=== PATIENT | male | born 1950 | race Caucasian/White ===

== ENCOUNTER 2019-08-18 20:06 | Emergency (ER) | payer MEDICAID, MEDICARE ==
[~2019-08-18] VITALS: Ht 177.8 cm; Wt 68.0 kg
--- NOTE | 2019-08-18 20:46 | NUR ---
STS HAD 4 BEERS AT 1600
[2019-08-18 21:26] VITALS: BP 108/44
--- NOTE | 2019-08-18 21:28 | NUR ---
PT TALKING BIZARRELY, ORIENTED TO PLACE/TIME/EVENT/PERSON BUT SPEAKING NONSENSE. VSS. PT TO BE MOVED TO CORE.
--- NOTE | 2019-08-18 21:39 | NUR ---
REPORT TO MERARI
== END 2019-08-18 23:11 | disposition home or self-care (01) ==
LOC: ED 23:05
DX: G89.29 Other chronic pain (principal); M54.5 Low back pain; F17.200 Nicotine dependence, unspecified, uncomplicated; Z72.9 Problem related to lifestyle, unspecified
CPT/HCPCS: 99283

== ENCOUNTER 2019-08-19 09:05 | Emergency (ER) | payer MEDICARE, MEDICAID ==
[~2019-08-19] VITALS: Ht 177.8 cm; Wt 75.0 kg
[2019-08-19 09:10] VITALS: BP 135/70
[2019-08-19] MEDS ORDERED: NAPROXEN 500 MG TABLET PO ONE (11:00)
[2019-08-19] MEDS ORDERED: NAPROXEN 500 MG TABLET ONE (11:17)
== END 2019-08-19 11:29 | disposition home or self-care (01) ==
LOC: ED 10:16
DX: S39.012A Strain of muscle, fascia and tendon of lower back, initial encounter (principal); G89.29 Other chronic pain; F20.0 Paranoid schizophrenia; X58.XXXA Exposure to other specified factors, initial encounter; Y93.89 Activity, other specified; Y92.89 Other specified places as the place of occurrence of the external cause; Y99.8 Other external cause status
CPT/HCPCS: 99282; 99283

== ENCOUNTER 2019-08-20 10:08 | Emergency (ER) | payer MEDICARE, MEDICAID ==
[~2019-08-20] VITALS: Ht 172.7 cm; Wt 80.0 kg
[2019-08-20 11:00] VITALS: BP 138/72
[2019-08-20 11:19] LABS: BASOPHILS # (AUTO) 0.04 x10^3/uL (0-0.1); BASOPHILS % (AUTO) 0 % (0-1); EOSINOPHILS # (AUTO) 0.45 x10^3/uL (0-0.4); EOSINOPHILS % (AUTO) 4 % (1-7); LYMPHOCYTES # (AUTO) 1.51 x10^3/uL (1-3.4); LYMPHOCYTES % (AUTO) 14 % (22-44); MD NO; MEAN CORPUSCULAR HEMOGLOBIN 32.6 pg (27.5-34.5); MEAN CORPUSCULAR HGB CONC 32.8 g/dL (33.2-36.2); MEAN CORPUSCULAR VOLUME 99.4 fL (81-97); MEAN PLATELET VOLUME 7.5 fL (7.4-10.4); MONOCYTES # (AUTO) 0.44 x10^3/uL (0.2-0.8); MONOCYTES % (AUTO) 4 % (2-9); NEUTROPHILS # (AUTO) 8.56 x10^3/uL (1.8-6.8); NEUTROPHILS % (AUTO) 78 % (42-75); PLATELET COUNT 277 x10^3/uL (130-400); RED BLOOD COUNT 3.69 x10^6/uL (4.38-5.82); RED CELL DISTRIBUTION WIDTH 14.3 % (9.4-14.8)
[2019-08-20 11:23] LABS: MICROSCOPIC INDICATED
[2019-08-20 11:29] LABS: ALANINE AMINOTRANSFERASE 23 U/L (12-78); ALBUMIN 3.5 g/dL (3.4-5.0); ANION GAP 10 mmol/L (5-15); CALCIUM 8.7 mg/dL (8.5-10.1); CHLORIDE 108 mmol/L (98-107)
--- NOTE | 2019-08-20 11:31 | NUR ---
BIB BY ASHLEY FROM [facility] FOR REPORTED SI. ON ARRIVAL DENIES SI/HI. HOWEVER/TANGENTIAL/HYPERVERBAL (APPEARS TO BE MANIC VS IN AN ACUTE PHASE OF SCHIZOPHRENIA) REPORTS HX OF SAME DENIES ETOH.ILLICITS CHANGED IN TO GOWN (2 BAGS OF BELONGING PLACED IN LOCKED CLOSET) UDS SENT WELL SITTER TO BEDSIDE
[2019-08-20 11:33] LABS: ALKALINE PHOSPHATASE 114 U/L (45-117); BILIRUBIN,TOTAL 0.3 mg/dL (0.2-1.0); TOTAL PROTEIN 7.4 g/dL (6.4-8.2)
[2019-08-20 11:34] LABS: SALICYLATE LEVEL < 1.7 mg/dL (2.8-20.0)
[2019-08-20 11:48] LABS: AMPHETAMINE SCREEN, URINE Negative (Negative); BARBITURATE SCREEN, URINE Negative (Negative); BENZODIAZEPINE SCREEN, URINE Negative (Negative); CANNABINOID SCREEN, URINE Negative (Negative); COCAINE SCREEN, URINE Negative (Negative); METHADONE SCREEN, URINE Negative (Negative); OPIATE SCREEN, URINE Negative (Negative)
[2019-08-20 11:50] LABS: CULTURE INDICATED? YES
--- NOTE | 2019-08-20 12:06 | NUR ---
sitter within direct eyeline rooms remains secured with psychiatric precautions Lunch tray Ordered
--- NOTE | 2019-08-20 13:14 | NUR ---
psychiatry WELDER APPRENTICE COMBINATION at bedside-to place hold as patient reported "if i had a gun i would kill myself." Provided with lunch tray
--- NOTE | 2019-08-20 14:01 | NUR ---
THROUGHPUT RN: CHUCKIE NOTIFIED OF PT.
--- NOTE | 2019-08-20 14:10 | NUR ---
TASK RN: RECEIVED BEDSIDE REPORT FROM CARTER DANIELLE.
[2019-08-20] MEDS ORDERED: HALOPERIDOL 5 MG TABLET PO PRN (14:30)
[2019-08-20] MEDS ORDERED: LORazepam 1MG TABLET PO PRN (14:30)
[2019-08-20] MEDS ORDERED: LORazepam 2 MG/ML, 1ML IM PRN (14:30)
[2019-08-20] MEDS ORDERED: DIPHENHYDRAMINE 50 MG/ML, 1ML IM PRN (14:30)
[2019-08-20] MEDS ORDERED: OLANZAPINE 5 MG TABLET PO SCH (14:30)
[2019-08-20] MEDS ORDERED: HALOPERIDOL 5 MG/ML IM PRN (14:30)
[2019-08-20] MEDS ORDERED: DIPHENHYDRAMINE 50 MG CAPSULE PO PRN (14:30)
--- NOTE | 2019-08-20 14:42 | NUR ---
TASK RN: BEDSIDE REPORT TO CARTER DANIELLE.
--- NOTE | 2019-08-20 14:53 | NUR ---
THROUGHPUT RN: NO RESPNSE FROM ON LICENSE OF [facility]. PACKET [facility]XED TO [facility], [facility].
[2019-08-20] MEDS ORDERED: OLANZAPINE 5 MG TABLET ONE (15:06)
--- NOTE | 2019-08-20 15:10 | NUR ---
MEDICATED PER EMAR SITTER REMAIN WITHIN DIRECT EYELINE
--- NOTE | 2019-08-20 15:30 | NUR ---
Report to attila spencer on 3e
== END 2019-08-20 16:10 ==
LOC: ED 13:50
DX: F20.0 Paranoid schizophrenia (principal)
CPT/HCPCS: 36415; 80053; 80307; 81001; 85025; 87086; 87147; 99283; 99284

== ENCOUNTER 2019-09-11 16:31 | Emergency (ER) | payer MEDICAID, MEDICARE ==
[~2019-09-11] VITALS: Ht 172.7 cm; Wt 71.2 kg
[~2019-09-11 16:31] MED LIST: NICO-486 TD; OLAN5TAB9 PO
[2019-09-11 16:38] VITALS: BP 130/80
--- NOTE | 2019-09-11 16:39 | NUR ---
PT VIOLETTA RAMIREZ FOR SI FROM [facility]. PT ARRIVED ON LEGAL HOLD. PT DRESSED IN GOWN AND BELONGINGS REMOVED FROM THE ROOM. PT AAO X 4, NAD, ROOM AIR. SITTER IN HALLWAY IN DIRECT LINE OF SIGHT FOR CLSOE OBS PRECAUTIONS.
--- NOTE | 2019-09-11 16:43 | NUR ---
PER PT, HE STATES HE HAS 3-5 BEERS/WEEK.
--- NOTE | 2019-09-11 17:16 | NUR ---
THROUGHPUT: PER [facility]. PT ONLY HAS 2 MEDICARE DAYS LEFT.
[2019-09-11 18:10] LABS: BASOPHILS # (AUTO) 0.06 x10^3/uL (0-0.1); BASOPHILS % (AUTO) 1 % (0-1); EOSINOPHILS % (AUTO) 1 % (1-7); LYMPHOCYTES # (AUTO) 2.04 x10^3/uL (1-3.4); LYMPHOCYTES % (AUTO) 15 % (22-44); MD NO; MEAN CORPUSCULAR HEMOGLOBIN 31.4 pg (27.5-34.5); MEAN CORPUSCULAR HGB CONC 33.2 g/dL (33.2-36.2); MEAN CORPUSCULAR VOLUME 94.8 fL (81-97); MEAN PLATELET VOLUME 7.4 fL (7.4-10.4); MONOCYTES # (AUTO) 0.71 x10^3/uL (0.2-0.8); MONOCYTES % (AUTO) 5 % (2-9); NEUTROPHILS # (AUTO) 10.43 x10^3/uL (1.8-6.8); NEUTROPHILS % (AUTO) 78 % (42-75); PLATELET COUNT 274 x10^3/uL (130-400); RED BLOOD COUNT 4.07 x10^6/uL (4.38-5.82); RED CELL DISTRIBUTION WIDTH 13.6 % (9.4-14.8)
--- NOTE | 2019-09-11 18:15 | NUR ---
TOPOGRAPHY TECHNICIAN AT BEDSIDE FOR ASSESSMENT. PT AGREEABLE TO LAB DRAW.
[2019-09-11 18:18] LABS: ALBUMIN 3.4 g/dL (3.4-5.0); ANION GAP 7 mmol/L (5-15); CALCIUM 8.7 mg/dL (8.5-10.1); CHLORIDE 100 mmol/L (98-107); CREATININE 1.01 mg/dL (0.7-1.3)
[2019-09-11 18:26] LABS: SALICYLATE LEVEL < 1.7 mg/dL (2.8-20.0)
--- NOTE | 2019-09-11 19:00 | NUR ---
2 BAGS OF BELONGINGS AND WALKER LABELLED AND PLACED IN LOCKER. REPORT GIVEN TO CARTER MARTINEZ. CARE TRANSFERRED AT THIS TIME.
--- NOTE | 2019-09-11 19:02 | NUR ---
REPORT RECEIVED FROM JONELLE MACHADO.
--- NOTE | 2019-09-11 19:36 | NUR ---
Patient given discharge instructions and they have confirmed that they understand the instructions. Patient ambulatory with steady gait.
== END 2019-09-11 19:37 | disposition home or self-care (01) ==
LOC: ED 18:17
DX: F32.9 Major depressive disorder, single episode, unspecified (principal); F17.200 Nicotine dependence, unspecified, uncomplicated; F20.9 Schizophrenia, unspecified
CPT/HCPCS: 36415; 80048; 80307; 82040; 85025; 99284

== ENCOUNTER 2019-10-03 22:47 | Emergency (ER) | payer MEDICARE, MEDICAID ==
[~2019-10-03] VITALS: Ht 177.8 cm; Wt 75.0 kg
[2019-10-03 23:00] VITALS: BP 148/80
--- NOTE | 2019-10-03 23:08 | NUR ---
Pt arrives to ed with abd pain s/p taking two tylenol from a stranger and a sandwhich. Pt also is feeling suicidal and would like to shoot himself in the face if he had a gun. Pt reports he stop taking his psych medications for one year. Pt reports that he is not compliant and at this time is on the street.
[2019-10-03 23:20] LABS: BASOPHILS # (AUTO) 0.03 x10^3/uL (0-0.1); BASOPHILS % (AUTO) 0 % (0-1); EOSINOPHILS # (AUTO) 0.27 x10^3/uL (0-0.4); EOSINOPHILS % (AUTO) 2 % (1-7); LYMPHOCYTES # (AUTO) 2.24 x10^3/uL (1-3.4); LYMPHOCYTES % (AUTO) 18 % (22-44); MD NO; MEAN CORPUSCULAR HEMOGLOBIN 30.9 pg (27.5-34.5); MEAN CORPUSCULAR HGB CONC 33.1 g/dL (33.2-36.2); MEAN CORPUSCULAR VOLUME 93.6 fL (81-97); MEAN PLATELET VOLUME 7.6 fL (7.4-10.4); MONOCYTES # (AUTO) 0.74 x10^3/uL (0.2-0.8); MONOCYTES % (AUTO) 6 % (2-9); NEUTROPHILS # (AUTO) 8.96 x10^3/uL (1.8-6.8); NEUTROPHILS % (AUTO) 73 % (42-75); PLATELET COUNT 279 x10^3/uL (130-400); RED BLOOD COUNT 3.78 x10^6/uL (4.38-5.82); RED CELL DISTRIBUTION WIDTH 14.4 % (9.4-14.8)
[2019-10-03 23:23] LABS: ALANINE AMINOTRANSFERASE 22 U/L (12-78); ALBUMIN 3.2 g/dL (3.4-5.0); ANION GAP 8 mmol/L (5-15); CALCIUM 8.5 mg/dL (8.5-10.1); CHLORIDE 106 mmol/L (98-107); SALICYLATE LEVEL < 1.7 mg/dL (2.8-20.0)
[2019-10-03 23:25] LABS: ALKALINE PHOSPHATASE 89 U/L (45-117); BILIRUBIN,TOTAL 0.5 mg/dL (0.2-1.0); CREATININE 1.09 mg/dL (0.7-1.3); TOTAL PROTEIN 7.9 g/dL (6.4-8.2)
--- NOTE | 2019-10-03 23:58 | NUR ---
Pt asked for urine and requested to provide so he can be provided with appropriate care.
--- NOTE | 2019-10-04 00:37 | NUR ---
bedside report to gildardo spencer.
--- NOTE | 2019-10-04 00:59 | NUR ---
BREAK RN: PT REFUSING TO PEE. PT EDUCATED ON THE NEED FOR A URINE SAMPLE. WILL CONTINUE TO URGE PATIENT TO PROVIDE SAMPLE. HE WAS ALSO ADVISED THAT A STRAIGHT CATH WOULD NEED TO BE DONE IF HE CAN'T PROVIDE A URINE SAMPLE IN THE NEXT 30 MINUTES. PT STATES UNDERSTANDING.
--- NOTE | 2019-10-04 01:16 | NUR ---
BREAK RN: PT PROVIDED URINE SAMPLE, LABELED AND SENT TO LAB. RESTING ON GURNEY WITH EYES CLOSED, AROUSES TO VERBAL STIMULI.
--- NOTE | 2019-10-04 01:29 | NUR ---
REPORT TO PRIMARY RN, PALAK
[2019-10-04 01:36] LABS: AMPHETAMINE SCREEN, URINE Negative (Negative); BARBITURATE SCREEN, URINE Negative (Negative); BENZODIAZEPINE SCREEN, URINE Negative (Negative); CANNABINOID SCREEN, URINE Negative (Negative); COCAINE SCREEN, URINE Negative (Negative); METHADONE SCREEN, URINE Negative (Negative); OPIATE SCREEN, URINE Negative (Negative)
--- NOTE | 2019-10-04 01:48 | NUR ---
PT RESTING ON [place]SET, A&oX4, STATED HE CONTINUES TO HAVE SUICIDAL THOUGHT, WHEN THIS RN ASKED HIM REGARDING PLAN PT MUMBLED, TIGHTEN HIS FIST AND REFUSED TO ANSWER. ROOM SECURED, AWAITING TELEPSYCH CONSULT
--- NOTE | 2019-10-04 02:35 | NUR ---
PT RESTING ON GURNEY WITH EYES CLOSED, OPENS EYES EASILY TO VERBAL RESPONSE, PROVIDED PT WITH WARM BLANKET, DENIES FURTHER NEEDS AT THIS TIME
--- NOTE | 2019-10-04 03:46 | NUR ---
SOC UPDATED ON PT STATUS
--- NOTE | 2019-10-04 03:48 | NUR ---
TELEPSYCH CONSULT IN PROCESS
== END 2019-10-04 04:50 | disposition home or self-care (01) ==
LOC: ED 23:26
DX: F32.0 Major depressive disorder, single episode, mild (principal); F17.200 Nicotine dependence, unspecified, uncomplicated
CPT/HCPCS: 36415; 80053; 80307; 85025; 99284

== ENCOUNTER 2019-10-05 13:05 | Emergency (ER) | payer MEDICAID, MEDICARE ==
[~2019-10-05] VITALS: Ht 177.8 cm; Wt 73.0 kg
--- NOTE | 2019-10-05 13:13 | NUR ---
pt BIB by [facility] for C/O abd pain, low back pain and "dark red stools" pt required assistance moving from [facility] to hospital [facility]. Requested pt to change into a hospital gown. Connected to VS machine. Call light given to pt. Side rails up.
--- NOTE | 2019-10-05 13:16 | NUR ---
Provider at bedside evulating pt.
[2019-10-05 13:52] LABS: ALANINE AMINOTRANSFERASE 19 U/L (12-78); ALBUMIN 3.1 g/dL (3.4-5.0); ANION GAP 6 mmol/L (5-15); CALCIUM 8.7 mg/dL (8.5-10.1); CHLORIDE 109 mmol/L (98-107); CREATININE 0.95 mg/dL (0.7-1.3)
[2019-10-05 13:54] LABS: ALKALINE PHOSPHATASE 83 U/L (45-117); BILIRUBIN,TOTAL 0.5 mg/dL (0.2-1.0); MEAN CORPUSCULAR HEMOGLOBIN 31.3 pg (27.5-34.5); MEAN CORPUSCULAR HGB CONC 33.3 g/dL (33.2-36.2); MEAN CORPUSCULAR VOLUME 93.9 fL (81-97); MEAN PLATELET VOLUME 7.4 fL (7.4-10.4); PLATELET COUNT 241 x10^3/uL (130-400); RED BLOOD COUNT 3.67 x10^6/uL (4.38-5.82); RED CELL DISTRIBUTION WIDTH 14.2 % (9.4-14.8); TOTAL PROTEIN 7.3 g/dL (6.4-8.2)
[2019-10-05] MEDS ORDERED: SODIUM CHLORIDE FLUSH 10ML SYR IVF ONE (14:00)
[2019-10-05 14:21] LABS: BASOPHILS # (AUTO) 0.04 x10^3/uL (0-0.1); BASOPHILS % (AUTO) 0 % (0-1); EOSINOPHILS # (AUTO) 0.13 x10^3/uL (0-0.4); EOSINOPHILS % (AUTO) 2 % (1-7); LYMPHOCYTES # (AUTO) 1.91 x10^3/uL (1-3.4); LYMPHOCYTES % (AUTO) 21 % (22-44); MD SCAN; MONOCYTES # (AUTO) 0.36 x10^3/uL (0.2-0.8); MONOCYTES % (AUTO) 4 % (2-9); NEUTROPHILS # (AUTO) 6.51 x10^3/uL (1.8-6.8); NEUTROPHILS % (AUTO) 73 % (42-75)
--- NOTE | 2019-10-05 14:32 | NUR ---
pt out of room to CT
--- NOTE | 2019-10-05 14:42 | NUR ---
Returned from CT
[2019-10-05] MEDS ORDERED: OMNIPAQUE 350 MG/ML, 100ML BOTTLE ONE (14:53)
--- NOTE | 2019-10-05 15:02 | NUR ---
Requested pt to provide UA sample. pt stated he will. Urinal given to pt.
--- NOTE | 2019-10-05 15:07 | NUR ---
pt states he is unable to provide urine sample d/t "feeling like [he] is in spider webs." Asked pt for clarrification what he meant and was told "its a figure of speech." encouraged pt to provide sample to continue with POC, pt refused. Ask if pt would perfer a straight cath, pt refused. Updated MD regarding pt status
--- NOTE | 2019-10-05 15:37 | NUR ---
pt being discharged. Paperwork given to pt include perscriptions and surgical refferal. pt refusing to leave stating: he can't sleep, his voice his hoarse, the wheels on his walker do not work, he does not have money to have surgery completed or fill his medications. Ask patient how he could be assisted with his discharge/what he required. pt does not provide an answer. continues to list problems and how he needs money and will not have any until Friday. Re-discussed pts discharge paperwork and MDs recommendations. pt able to stand and walk with walker with no obvious distress. pt continues to refuse to leave despite discharge instructions. Discussed with charge nurse. Security assist pt out of hospital. pt ambulated with use of FWW without distress.
[2019-10-05 15:41] VITALS: BP 105/41
== END 2019-10-05 16:00 | disposition home or self-care (01) ==
LOC: ED 14:30
DX: K64.4 Residual hemorrhoidal skin tags (principal); K40.91 Unilateral inguinal hernia, without obstruction or gangrene, recurrent; F17.200 Nicotine dependence, unspecified, uncomplicated
CPT/HCPCS: 36415; 74177; 80053; 83690; 85025; 99284; Q9967

== ENCOUNTER 2019-10-06 13:41 | Emergency (ER) | payer MEDICAID, MEDICARE ==
[~2019-10-06] VITALS: Ht 177.8 cm; Wt 69.9 kg
[2019-10-06 13:50] VITALS: BP 113/64
--- NOTE | 2019-10-06 15:00 | NUR ---
blacksmith helper: Pt wheeled to ED room TR01 from lobby at this time.
--- NOTE | 2019-10-06 15:44 | NUR ---
DR MARTINEZ BS TO DISCUSS POC. PT SPEAKING IN ANGRY VOICE.
--- NOTE | 2019-10-06 16:26 | NUR ---
TASK RN: PT PROVIDED 2 PAIR OF NEW SOCKS AND CLEAN POLO T-SHIRT. D/C INSTRUCTINS REVIEWED AND QUESTIONS ANSWERED. PT D/C WALKING WITH HIS WALKER, TAXI VOUCHER TO [facility] STATION PROVIDED PER PTS REQUEST.
== END 2019-10-06 16:41 | disposition home or self-care (01) ==
LOC: ED 16:35
DX: K64.4 Residual hemorrhoidal skin tags (principal); F17.200 Nicotine dependence, unspecified, uncomplicated
CPT/HCPCS: 99283

== ENCOUNTER 2019-11-17 13:53 | Emergency (ER) | payer MEDICARE, MEDICAID ==
[~2019-11-17] VITALS: Ht 177.8 cm; Wt 68.0 kg
[2019-11-17 13:58] VITALS: BP 155/89
--- NOTE | 2019-11-17 14:06 | NUR ---
TASK RN: THIS IS A 68 YO M BIB EMS FROM BUS STATION W/ C/O SI AND VISUAL HALLCUINATIONS. PT STATES "I WOKE UP THIS MORNING AND EVERYTHING WAS INSIDE OUT". DENIES AUDITORY HALLUCINATIONS. HX:SCHITZOPHRENIA AND BIPOLAR. PT REPORTS BEING OFF MEDS FOR OVER A YEAR. PT REPORTS SI BUT NO PLAN IN PLACE. DENIES ANY PREVIOUS ATTEMPTS. REPORTS CURRENT RT FOOT FX W/ BOOT IN PLACE UPON ARRIVAL. PT PLACED IN GOWN, PERSONAL BELONGINGS REMOVED. VS STABLE. PT RESTING ON [employer]. LAB IN ROOM.
--- NOTE | 2019-11-17 14:17 | NUR ---
1 BAG OF PTS BELONGINGS INCLUDING CANE, LABELED AND PLACED ON BOTTOM SHELF OF BELONGINGS LOCKER.
--- NOTE | 2019-11-17 14:24 | NUR ---
REPORT GIVEN TO MADYSON MACHADO.
--- NOTE | 2019-11-17 14:38 | NUR ---
PT FOUND WEARING COMPRESSION STOCKINGS INAPPROPRIATELY. CORRECTION MADE TO BOTH STOCKINGS AND EDUCATION PROVIDED TO PT. PT SEEMS RECEPTIVE TO TEACING AT THIS TIME.
[2019-11-17 14:40] LABS: ALBUMIN 3.2 g/dL (3.4-5.0); ANION GAP 5 mmol/L (5-15); CALCIUM 8.6 mg/dL (8.5-10.1); CHLORIDE 110 mmol/L (98-107); CREATININE 0.99 mg/dL (0.7-1.3); MEAN CORPUSCULAR HGB CONC 32.9 g/dL (33.2-36.2); MEAN CORPUSCULAR VOLUME 94.3 fL (81-97); MEAN PLATELET VOLUME 7.5 fL (7.4-10.4); PLATELET COUNT 219 x10^3/uL (130-400); RED BLOOD COUNT 3.59 x10^6/uL (4.38-5.82); RED CELL DISTRIBUTION WIDTH 17.2 % (9.4-14.8)
[2019-11-17 14:43] LABS: SALICYLATE LEVEL < 1.7 mg/dL (2.8-20.0)
[2019-11-17 15:17] LABS: BASOPHILS # (AUTO) 0.05 x10^3/uL (0-0.1); BASOPHILS % (AUTO) 1 % (0-1); EOSINOPHILS # (AUTO) 0.29 x10^3/uL (0-0.4); EOSINOPHILS % (AUTO) 4 % (1-7); LYMPHOCYTES # (AUTO) 1.43 x10^3/uL (1-3.4); LYMPHOCYTES % (AUTO) 18 % (22-44); MONOCYTES # (AUTO) 0.41 x10^3/uL (0.2-0.8); MONOCYTES % (AUTO) 5 % (2-9); NEUTROPHILS # (AUTO) 5.93 x10^3/uL (1.8-6.8); NEUTROPHILS % (AUTO) 73 % (42-75)
[2019-11-17 15:18] LABS: MD SCAN
--- NOTE | 2019-11-17 16:24 | NUR ---
PT RESTING IN BED AT THIS TIME. AWAITING ASSEMBLER CORNCOB PIPES EVAL. PT EXPRESSES NO WANTS OR NEEDS AT THIS TIME.
--- NOTE | 2019-11-17 16:50 | NUR ---
Robert RN: LEN Frost at bedside assessing pt, UDS collected & walked to lab
[2019-11-17 17:10] LABS: AMPHETAMINE SCREEN, URINE Negative (Negative); BARBITURATE SCREEN, URINE Negative (Negative); BENZODIAZEPINE SCREEN, URINE Negative (Negative); CANNABINOID SCREEN, URINE Positive (Negative); COCAINE SCREEN, URINE Negative (Negative); METHADONE SCREEN, URINE Negative (Negative); OPIATE SCREEN, URINE Negative (Negative)
== END 2019-11-17 18:38 | disposition home or self-care (01) ==
LOC: ED 16:42
DX: F28 Other psychotic disorder not due to a substance or known physiological condition (principal); F20.9 Schizophrenia, unspecified
CPT/HCPCS: 36415; 80048; 80307; 82040; 85025; 99283

== ENCOUNTER 2019-11-20 19:09 | Emergency (ER) | payer MEDICARE, MEDICAID ==
[2019-11-20 19:27] VITALS: BP 121/73
--- NOTE | 2019-11-20 20:30 | NUR ---
NO ANSWER WHEN CALLED FOR ROOM
--- NOTE | 2019-11-20 21:00 | NUR ---
NO ANSWER WHEN CALLED FOR ROOM
--- NOTE | 2019-11-20 22:00 | NUR ---
NOT IN LOBBY
--- NOTE | 2019-11-21 00:50 | NUR ---
PT IS BACK IN LOBBY AT THIS TIME, ROOMED NOW.
== END 2019-11-21 02:20 | disposition left against medical advice (07) ==
LOC: ED 11-21 01:09
DX: S39.012A Strain of muscle, fascia and tendon of lower back, initial encounter (principal); F17.200 Nicotine dependence, unspecified, uncomplicated; Z72.9 Problem related to lifestyle, unspecified; X58.XXXA Exposure to other specified factors, initial encounter; Y93.89 Activity, other specified; Y92.89 Other specified places as the place of occurrence of the external cause; Y99.8 Other external cause status
CPT/HCPCS: 99283

== ENCOUNTER 2019-11-21 04:10 | Emergency (ER) | payer MEDICARE, MEDICAID ==
[~2019-11-21] VITALS: Ht 177.8 cm; Wt 68.1 kg
[2019-11-21 06:44] VITALS: BP 127/67
== END 2019-11-21 08:01 | disposition home or self-care (01) ==
LOC: ED 07:10
DX: J00 Acute nasopharyngitis [common cold] (principal); F17.200 Nicotine dependence, unspecified, uncomplicated; Z72.9 Problem related to lifestyle, unspecified
CPT/HCPCS: 99283

== ENCOUNTER 2019-11-22 17:55 | Emergency (ER) | payer MEDICARE, MEDICAID ==
[~2019-11-22] VITALS: Ht 177.8 cm; Wt 68.0 kg
[2019-11-22 20:25] VITALS: BP 125/92
--- NOTE | 2019-11-22 21:06 | NUR ---
Patient uncooperative with assessment. Patient refusing to answer questions. Patient refusing to move from wheelchair to gurney. Refusing to provide urine sample. Urinal left with patient. Will continue monitor.
--- NOTE | 2019-11-22 21:34 | NUR ---
Patient refusing DC instructions. Patient taken to DC desk via personal wheelchair.
== END 2019-11-22 21:37 | disposition home or self-care (01) ==
LOC: ED 18:55
DX: S39.012A Strain of muscle, fascia and tendon of lower back, initial encounter (principal); F17.200 Nicotine dependence, unspecified, uncomplicated; Z72.9 Problem related to lifestyle, unspecified; X58.XXXA Exposure to other specified factors, initial encounter; Y93.89 Activity, other specified; Y92.89 Other specified places as the place of occurrence of the external cause; Y99.8 Other external cause status
CPT/HCPCS: 99281

== ENCOUNTER 2019-11-24 20:19 | Emergency (ER) | payer MEDICARE, MEDICAID ==
[~2019-11-24] VITALS: Ht 177.8 cm; Wt 68.5 kg
--- NOTE | 2019-11-24 21:05 | NUR ---
AQUATIC PHYSIOTHERAPIST AT BEDSIDE FOR XRAY.
--- NOTE | 2019-11-24 22:25 | NUR ---
PT SLEEPING INTERMITTENTLY, SIDE RAILS UP AND LOCKED, CALL LIGHT PLACED WITHIN REACH. VSS.
[2019-11-24 23:16] VITALS: BP 133/71
--- NOTE | 2019-11-24 23:16 | NUR ---
RESTING ON GURNEY, NAD, RESPIRATIONS EVEN AND UNLABORED. SAFETY PRECAUTIONS IN PLACE.
--- NOTE | 2019-11-24 23:28 | NUR ---
ATTEMPTED TO BREATHALYZE, PT UNABLE TO STAY AWAKE LONG ENOUGH TO TRY AND BLOW. UPDATED SCIENTIFIC PROCESS OPERATOR.
--- NOTE | 2019-11-24 23:58 | NUR ---
PT ESCORTED OUT IN HIS WHEEL CHAIR. A0X4. PT ABLE TO OPERATE HIS WHEEL CHAIR SAFELY AND STEADILY. PT PROVIDED BUS PASS
== END 2019-11-25 | disposition home or self-care (01) ==
LOC: ED 23:04
DX: F10.120 Alcohol abuse with intoxication, uncomplicated (principal); R05 Cough; R06.02 Shortness of breath; F20.9 Schizophrenia, unspecified; F17.200 Nicotine dependence, unspecified, uncomplicated; Y90.9 Presence of alcohol in blood, level not specified
CPT/HCPCS: 71045; 99283

== ENCOUNTER 2019-11-25 02:02 | Emergency (ER) | payer MEDICARE, MEDICAID ==
[~2019-11-25] VITALS: Ht 182.9 cm; Wt 77.0 kg
[2019-11-25 02:03] VITALS: BP 141/87
== END 2019-11-25 02:21 | disposition home or self-care (01) ==
LOC: ED 02:10
DX: J00 Acute nasopharyngitis [common cold] (principal); T73.0XXA Starvation, initial encounter; F17.210 Nicotine dependence, cigarettes, uncomplicated; Z72.9 Problem related to lifestyle, unspecified; X58.XXXA Exposure to other specified factors, initial encounter
CPT/HCPCS: 99283; 99406

== ENCOUNTER 2019-11-25 04:08 | Emergency (ER) | payer MEDICARE, MEDICAID | END 2019-11-25 05:06 | LOC: ED 04:12 | DX: R93.0 Abnormal findings on diagnostic imaging of skull and head, not elsewhere classified (principal); Z53.21 Procedure and treatment not carried out due to patient leaving prior to being seen by health care provider ==

== ENCOUNTER 2019-11-26 14:11 | Emergency (ER) | payer MEDICARE, MEDICAID ==
[~2019-11-26] VITALS: Ht 175.3 cm; Wt 70.0 kg
[2019-11-26 14:23] VITALS: BP 148/79
== END 2019-11-26 14:59 | disposition home or self-care (01) ==
LOC: ED 14:40
DX: R42 Dizziness and giddiness (principal); F20.9 Schizophrenia, unspecified
CPT/HCPCS: 93005; 99283

== ENCOUNTER 2019-11-27 11:42 | Emergency (ER) | payer MEDICARE, MEDICAID ==
[~2019-11-27] VITALS: Ht 177.8 cm; Wt 69.0 kg
--- NOTE | 2019-11-27 12:11 | NUR ---
PT CAME IN CO OF BILAT FLANK PAIN AND COUGH. WAS TREATED YESTERDAY FOR NAUSEA AFTER SMOKING MARIJUANA. UA SENT. BLOOD DRAWN. EKG.
[2019-11-27 12:24] LABS: MICROSCOPIC INDICATED
[2019-11-27 12:30] LABS: BASOPHILS # (AUTO) 0.01 x10^3/uL (0-0.1); BASOPHILS % (AUTO) 0 % (0-1); EOSINOPHILS # (AUTO) 0.07 x10^3/uL (0-0.4); EOSINOPHILS % (AUTO) 1 % (1-7); LYMPHOCYTES % (AUTO) 15 % (22-44); MD NO; MEAN CORPUSCULAR HEMOGLOBIN 30.6 pg (27.5-34.5); MEAN CORPUSCULAR HGB CONC 32.1 g/dL (33.2-36.2); MEAN CORPUSCULAR VOLUME 95.4 fL (81-97); MEAN PLATELET VOLUME 7.5 fL (7.4-10.4); MONOCYTES # (AUTO) 0.35 x10^3/uL (0.2-0.8); MONOCYTES % (AUTO) 5 % (2-9); NEUTROPHILS # (AUTO) 5.71 x10^3/uL (1.8-6.8); NEUTROPHILS % (AUTO) 79 % (42-75); PLATELET COUNT 247 x10^3/uL (130-400); RED BLOOD COUNT 3.86 x10^6/uL (4.38-5.82); RED CELL DISTRIBUTION WIDTH 18.3 % (9.4-14.8)
[2019-11-27 12:42] LABS: ALBUMIN 3.3 g/dL (3.4-5.0); ANION GAP 9 mmol/L (5-15); CALCIUM 8.1 mg/dL (8.5-10.1); CHLORIDE 110 mmol/L (98-107); CREATININE 1.07 mg/dL (0.7-1.3)
[2019-11-27 12:54] LABS: CULTURE INDICATED? NO
[2019-11-27 13:10] VITALS: BP 147/86
--- NOTE | 2019-11-27 13:11 | NUR ---
PT RESTING IN [facility]. NAD. VSS. NO NEEDS AT THIS TIME. BLANKET PROVIDED
== END 2019-11-27 14:16 | disposition home or self-care (01) ==
LOC: ED 12:20
DX: R10.9 Unspecified abdominal pain (principal); R30.9 Painful micturition, unspecified; R05 Cough; G89.29 Other chronic pain; F20.9 Schizophrenia, unspecified
CPT/HCPCS: 36415; 71045; 80048; 81001; 82040; 85025; 99284

== ENCOUNTER 2019-11-27 18:31 | Emergency (ER) | payer MEDICARE, MEDICAID ==
[~2019-11-27] VITALS: Ht 177.8 cm; Wt 72.0 kg
[2019-11-27 18:36] VITALS: BP 142/84
--- NOTE | 2019-11-27 18:48 | NUR ---
PT GIVEN DISCHARGE INSTRUCTIONS PER ER PROVIDER. SECURITY CALLED TO ASSIST PT TO LEAVE PREMISES D/T PT CUSSING AT STAFF AND REFUSING TO LEAVE
== END 2019-11-27 18:49 | disposition home or self-care (01) ==
LOC: ED 18:40
DX: J15.9 Unspecified bacterial pneumonia (principal); F17.200 Nicotine dependence, unspecified, uncomplicated; Z72.9 Problem related to lifestyle, unspecified
CPT/HCPCS: 96360; 96361; 96372; 99283

== ENCOUNTER 2019-12-02 12:07 | Emergency (ER) | payer MEDICARE, MEDICAID ==
[~2019-12-02] VITALS: Ht 177.8 cm; Wt 59.1 kg
[2019-12-02] MEDS ORDERED: KETOROLAC 30 MG/1 ML IM ONE (12:30)
[2019-12-02] MEDS ORDERED: HYDROcodone/APAP 5/325 TABLET PO ONE (12:30)
[2019-12-02] MEDS ORDERED: PLEASE ENTER HEIGHT AND WEIGHT MC SCH (12:30)
[2019-12-02] MEDS ORDERED: KETOROLAC 30 MG/1 ML ONE (12:34)
[2019-12-02] MEDS ORDERED: HYDROcodone/APAP 5/325 TABLET ONE (12:34)
[2019-12-02 12:39] VITALS: BP 138/83
--- NOTE | 2019-12-02 12:39 | NUR ---
PT MEDICATED PER EMAR. PT TOLERATED WELL. PT'S AOX4. RESPS EVEN AND UNLABORED.
--- NOTE | 2019-12-02 12:59 | NUR ---
pt's pain level is atill 10/10 now after pain meds given. edmd notified.
[2019-12-03] MEDS ORDERED: ALBUTEROL SULFATE 200 PUFFS/8.5 GR INH INH PRN (08:00)
== END 2019-12-02 14:50 | disposition home or self-care (01) ==
LOC: ED 12:26
DX: J44.1 Chronic obstructive pulmonary disease with (acute) exacerbation (principal); G89.29 Other chronic pain; M54.5 Low back pain; R05 Cough; I25.2 Old myocardial infarction; F17.210 Nicotine dependence, cigarettes, uncomplicated
CPT/HCPCS: 96372; 99283; 99406; J1885

== ENCOUNTER 2019-12-03 06:38 | Emergency (ER) | payer MEDICARE, MEDICAID ==
[~2019-12-03] VITALS: Ht 177.8 cm; Wt 70.0 kg
[2019-12-03 06:44] VITALS: BP 146/91
--- NOTE | 2019-12-03 06:48 | NUR ---
Patient VIOLETTA diana from the alf c/o cough x2 weeks. Patient was seen here yesterday for same and given an RX for antibiotics. Patient did not get it filled. Patient states he did not fill it because "I have only been here five months and I don't know where the pharmacy is." Patient is in NAD. Respirations even and unlabored.
--- NOTE | 2019-12-03 07:06 | NUR ---
REPORT FROM CARTER HDZ. PT CARE RESPONSIBILITIES ASSUMED.
[2019-12-03] MEDS ORDERED: ALBUTEROL HFA 90 MCG/SPRAY INH PRN (08:00)
--- NOTE | 2019-12-03 08:03 | NUR ---
RN STANFORD IS ASSISTING THE PRIMARY RN WITH PT. CARE. PT.'S SATS 90% WHEN THE RN ENTERED THE ROOM. PT. WAS ON 02 AT 2 LITERS. REPORT TO THE PRIMARY CARE RN.
[2019-12-03 08:45] LABS: RAPID INFLUENZA A Negative (Negative); RAPID INFLUENZA B Negative (Negative)
== END 2019-12-03 09:37 | disposition home or self-care (01) ==
LOC: ED 06:50
DX: J44.1 Chronic obstructive pulmonary disease with (acute) exacerbation (principal); Z20.828 Contact with and (suspected) exposure to other viral communicable diseases; J18.1 Lobar pneumonia, unspecified organism; G89.29 Other chronic pain; F20.9 Schizophrenia, unspecified; I25.2 Old myocardial infarction; F17.210 Nicotine dependence, cigarettes, uncomplicated
CPT/HCPCS: 71045; 87400; 93005; 99285; J7512

== ENCOUNTER 2019-12-04 01:58 | Emergency (ER) | payer MEDICARE, MEDICAID ==
[~2019-12-04] VITALS: Ht 177.8 cm; Wt 60.0 kg
[2019-12-04 02:01] VITALS: BP 161/94
--- NOTE | 2019-12-04 02:05 | NUR ---
Patient BIB [facility] c/o cough x2 weeks. Seen yesterday; lost RX. Patient states he wants a new RX. Patient is in NAD. Respirations even and unlabored.
== END 2019-12-04 02:32 | disposition home or self-care (01) ==
LOC: ED 02:06
DX: J44.9 Chronic obstructive pulmonary disease, unspecified (principal); I25.2 Old myocardial infarction; F17.290 Nicotine dependence, other tobacco product, uncomplicated
CPT/HCPCS: 99283; 99406

== ENCOUNTER 2019-12-06 11:12 | Emergency (ER) | payer MEDICARE, MEDICAID ==
[~2019-12-06] VITALS: Ht 177.8 cm; Wt 60.0 kg
--- NOTE | 2019-12-06 11:37 | NUR ---
pt biba for c/o fatigue and productive cough for last several weeks, pt was seen here multiple times in last week for same complaint, most recently 2 days ago, given rx for brochitis, pt took one dose abx and states symptoms worsened. report received from EMS. pt a&o, resps even and unlabored. nsr on surveillance system monitor. pt able to speak in full sentences without difficulty. all monitors in place. call light in reach. awaiting provider and dispo.
[2019-12-06] MEDS ORDERED: CEFTRIAXONE 1,000 MG IM ONE (12:30)
[2019-12-06] MEDS ORDERED: CEFTRIAXONE 1,000 MG ONE (13:03)
--- NOTE | 2019-12-06 13:15 | NUR ---
pt medicated per emar, tolerated well. awaiting dc orders from .
[2019-12-06 14:00] VITALS: BP 118/74
--- NOTE | 2019-12-06 14:05 | NUR ---
pt given dc instructions/education by CARTER Ley, ambulatory to dc with steady gait.
== END 2019-12-06 14:06 | disposition home or self-care (01) ==
LOC: ED 11:35
DX: J18.9 Pneumonia, unspecified organism (principal); J44.9 Chronic obstructive pulmonary disease, unspecified; F20.9 Schizophrenia, unspecified; I25.2 Old myocardial infarction
CPT/HCPCS: 71045; 93005; 96372; 99283; J0696

== ENCOUNTER 2019-12-08 17:50 | Emergency (ER) | payer MEDICARE, MEDICAID ==
[~2019-12-08] VITALS: Ht 177.8 cm; Wt 60.0 kg
--- NOTE | 2019-12-08 17:58 | NUR ---
THIS IS A 68 YO M BIB EMS W/ C/O FACE BURNING AFTER STARTING NEW ABX. PT STATES HE STARTED DOXYCYCLINE 2 DAYS AGO. RESP EVEN AND UNLABORED. VS STABLE. NADN. PT CONVERSING W/O DIFFICULTY. PT IS RESTING ON GURNEY CONNECTED TO ALL MONITORING. RED CASTELLON AT BEDSIDE FOR EVAL. DENIES FURTHER NEEDS AT THIS TIME.
[2019-12-08] MEDS ORDERED: DIPHENHYDRAMINE 25 MG CAPSULE PO ONE (18:00)
[2019-12-08] MEDS ORDERED: FAMOTIDINE 20 MG TABLET PO ONE (18:00)
[2019-12-08] MEDS ORDERED: DIPHENHYDRAMINE 25 MG CAPSULE ONE (18:01)
[2019-12-08] MEDS ORDERED: FAMOTIDINE 20 MG TABLET ONE (18:03)
[2019-12-08 18:48] VITALS: BP 139/74
== END 2019-12-08 18:50 | disposition home or self-care (01) ==
LOC: ED 18:23
DX: J42 Unspecified chronic bronchitis (principal); T36.4X5A Adverse effect of tetracyclines, initial encounter; L56.8 Other specified acute skin changes due to ultraviolet radiation; G89.29 Other chronic pain; I25.2 Old myocardial infarction; F17.200 Nicotine dependence, unspecified, uncomplicated; Y92.89 Other specified places as the place of occurrence of the external cause
CPT/HCPCS: 99283; Q0163

== ENCOUNTER 2019-12-11 17:22 | Emergency (ER) | payer MEDICARE, MEDICAID ==
[~2019-12-11] VITALS: Ht 177.8 cm; Wt 69.9 kg
--- NOTE | 2019-12-11 17:40 | NUR ---
Late Entry: Pt changed into gown, resting on gurney, NAD, denies additional needs, call light within reach, WCTM.
[2019-12-11] MEDS ORDERED: SODIUM CHLORIDE 0.9% 1,000ML IVBOLUS ONE (18:30)
[2019-12-11] MEDS ORDERED: PROMETHAZINE 25 MG/ML, 1ML IM ONE (18:30)
[2019-12-11] MEDS ORDERED: FAMOTIDINE 20 MG/2 ML IV ONE (18:30)
[2019-12-11] MEDS ORDERED: ONDANSETRON 2MG/ML, 2ML IVPush ONE (18:30)
[2019-12-11] MEDS ORDERED: SODIUM CHLORIDE FLUSH 10ML SYR IVF ONE (18:30)
[2019-12-11] MEDS ORDERED: ONDANSETRON 2MG/ML, 2ML ONE (18:36)
[2019-12-11] MEDS ORDERED: FAMOTIDINE 20 MG/2 ML ONE (18:36)
[2019-12-11 18:38] LABS: BASOPHILS # (AUTO) 0.02 x10^3/uL (0-0.1); BASOPHILS % (AUTO) 0 % (0-1); EOSINOPHILS # (AUTO) 0.04 x10^3/uL (0-0.4); EOSINOPHILS % (AUTO) 0 % (1-7); LYMPHOCYTES # (AUTO) 2.13 x10^3/uL (1-3.4); LYMPHOCYTES % (AUTO) 20 % (22-44); MD NO; MEAN CORPUSCULAR HEMOGLOBIN 30.7 pg (27.5-34.5); MEAN CORPUSCULAR HGB CONC 32.6 g/dL (33.2-36.2); MEAN CORPUSCULAR VOLUME 94.1 fL (81-97); MEAN PLATELET VOLUME 7.5 fL (7.4-10.4); MONOCYTES # (AUTO) 0.86 x10^3/uL (0.2-0.8); MONOCYTES % (AUTO) 8 % (2-9); NEUTROPHILS # (AUTO) 7.66 x10^3/uL (1.8-6.8); NEUTROPHILS % (AUTO) 72 % (42-75); PLATELET COUNT 303 x10^3/uL (130-400); RED CELL DISTRIBUTION WIDTH 17.3 % (9.4-14.8)
[2019-12-11 18:47] VITALS: BP 130/74
[2019-12-11 18:48] LABS: ALBUMIN 3.1 g/dL (3.4-5.0); ANION GAP 8 mmol/L (5-15); CALCIUM 8.8 mg/dL (8.5-10.1); CHLORIDE 105 mmol/L (98-107)
--- NOTE | 2019-12-11 18:50 | NUR ---
PT RSTING IN ROOM. VSS. PT RPORTS MILD NAUSA AND DCLINS PHNRGAN AT THIS TYRONE. PT MDICATD WITH SOLO FOR NAUSA. PT RMAINS DROWSY. NO NDS XPRSSD AT THIS TYRONE. CALL LIGHT WITHIN SALOMÓN. AWAITING RSULTS.
[2019-12-11 18:52] LABS: ALANINE AMINOTRANSFERASE 48 U/L (12-78); ALKALINE PHOSPHATASE 111 U/L (45-117); BILIRUBIN,TOTAL 0.4 mg/dL (0.2-1.0); CREATININE 1.24 mg/dL (0.7-1.3); TOTAL PROTEIN 6.4 g/dL (6.4-8.2)
--- NOTE | 2019-12-11 19:01 | NUR ---
Bedside report to Dani MACHADO, pt care transferred at this time.
== END 2019-12-11 19:57 | disposition home or self-care (01) ==
LOC: ED 17:30
DX: R11.2 Nausea with vomiting, unspecified (principal); K59.00 Constipation, unspecified; R94.31 Abnormal electrocardiogram [ECG] [EKG]; F20.9 Schizophrenia, unspecified; I25.2 Old myocardial infarction; G89.29 Other chronic pain; J44.9 Chronic obstructive pulmonary disease, unspecified; F17.200 Nicotine dependence, unspecified, uncomplicated
CPT/HCPCS: 36415; 74021; 80053; 83690; 85025; 93005; 96361; 96374; 96375; 99285; J2405; J3490; J7030

== ENCOUNTER 2019-12-16 16:11 | Emergency (ER) | payer MEDICARE, MEDICAID ==
[~2019-12-16] VITALS: Ht 177.8 cm; Wt 63.0 kg
[2019-12-16] MEDS ORDERED: SODIUM CHLORIDE FLUSH 10ML SYR IVF ONE (16:30)
[2019-12-16] MEDS ORDERED: PLEASE ENTER HEIGHT AND WEIGHT MC SCH (17:00)
[2019-12-16 17:12] LABS: BASOPHILS # (AUTO) 0.04 x10^3/uL (0-0.1); BASOPHILS % (AUTO) 0 % (0-1); EOSINOPHILS # (AUTO) 0.14 x10^3/uL (0-0.4); EOSINOPHILS % (AUTO) 1 % (1-7); LYMPHOCYTES # (AUTO) 1.65 x10^3/uL (1-3.4); LYMPHOCYTES % (AUTO) 15 % (22-44); MD NO; MEAN CORPUSCULAR HGB CONC 32.9 g/dL (33.2-36.2); MEAN CORPUSCULAR VOLUME 94.4 fL (81-97); MEAN PLATELET VOLUME 7.6 fL (7.4-10.4); MONOCYTES # (AUTO) 0.75 x10^3/uL (0.2-0.8); MONOCYTES % (AUTO) 7 % (2-9); NEUTROPHILS # (AUTO) 8.83 x10^3/uL (1.8-6.8); NEUTROPHILS % (AUTO) 77 % (42-75); PLATELET COUNT 245 x10^3/uL (130-400); RED BLOOD COUNT 4.03 x10^6/uL (4.38-5.82); RED CELL DISTRIBUTION WIDTH 17.7 % (9.4-14.8)
[2019-12-16 17:22] LABS: ALANINE AMINOTRANSFERASE 52 U/L (12-78); ANION GAP 4 mmol/L (5-15); CALCIUM 8.6 mg/dL (8.5-10.1); CHLORIDE 104 mmol/L (98-107); CREATININE 0.88 mg/dL (0.7-1.3)
--- NOTE | 2019-12-16 17:25 | NUR ---
PT RESTING IN [facility]. CONTINUES TO HAVE SOME INCREASED WOB THOUGH IMPROVED FROM ARRIVAL. WILL CONTINUE TO MONITOR.
[2019-12-16 17:26] LABS: ALKALINE PHOSPHATASE 119 U/L (45-117); BILIRUBIN,TOTAL 0.5 mg/dL (0.2-1.0); TOTAL PROTEIN 6.5 g/dL (6.4-8.2); TROPONIN I 0.031 ng/mL (0.000-0.045)
[2019-12-16 18:00] VITALS: BP 129/96
--- NOTE | 2019-12-16 18:21 | NUR ---
PATIENT TAKEN TO D/C VIA W/C. TO BE TAKEN HOME VIA CAB. GIVEN D/C PAPERWORK.
== END 2019-12-16 18:24 | disposition home or self-care (01) ==
LOC: ED 16:35
DX: J44.1 Chronic obstructive pulmonary disease with (acute) exacerbation (principal); Z20.828 Contact with and (suspected) exposure to other viral communicable diseases; I25.2 Old myocardial infarction; G89.29 Other chronic pain; F17.200 Nicotine dependence, unspecified, uncomplicated; R07.9 Chest pain, unspecified; R00.0 Tachycardia, unspecified; R94.31 Abnormal electrocardiogram [ECG] [EKG]
CPT/HCPCS: 36415; 71045; 80053; 80307; 83605; 83880; 84145; 84484; 85025; 87040; 93005

== ENCOUNTER 2019-12-19 12:35 | Emergency (ER) | payer MEDICARE, MEDICAID ==
[~2019-12-19] VITALS: Ht 177.8 cm; Wt 61.0 kg
[2019-12-19 12:40] VITALS: BP 139/80
--- NOTE | 2019-12-19 12:55 | NUR ---
REPORT TO ALDO Saez RN.
== END 2019-12-19 13:16 | disposition home or self-care (01) ==
LOC: ED 12:49
DX: R60.0 Localized edema (principal); I25.2 Old myocardial infarction; J44.9 Chronic obstructive pulmonary disease, unspecified; F17.200 Nicotine dependence, unspecified, uncomplicated; G89.29 Other chronic pain
CPT/HCPCS: 99283

== ENCOUNTER 2019-12-21 12:26 | Emergency (ER) | payer MEDICARE, MEDICAID ==
[~2019-12-21] VITALS: Ht 177.8 cm; Wt 70.6 kg
[2019-12-21 12:28] VITALS: BP 139/69
== END 2019-12-21 13:08 | disposition home or self-care (01) ==
LOC: ED 12:39
DX: S60.411A Abrasion of left index finger, initial encounter (principal); X58.XXXA Exposure to other specified factors, initial encounter; Y93.9 Activity, unspecified; Y92.89 Other specified places as the place of occurrence of the external cause; Y99.8 Other external cause status
CPT/HCPCS: 99281

== ENCOUNTER 2019-12-22 18:42 | Emergency (ER) | payer MEDICARE, MEDICAID ==
[~2019-12-22] VITALS: Ht 177.8 cm; Wt 68.2 kg
[2019-12-22 18:45] VITALS: BP 156/89
--- NOTE | 2019-12-22 19:00 | NUR ---
PT TO ROOM 25 PER [facility]. PT WAS WALKING AND A GUARD GAVE HIM A TACO, AND HIS STOMACHE BEGAN TO HURT AFTER HE ATE THE TACO. PT HAS ALSO HAD A PINT OF VODKA, A PACK OF CIGARETTES AND HAS SOB. DURING ASSESSMENT, MD IN TO ASSESS, AND ORDERS TO DISCHARGE. RN RETRIEVES DISCHARGE PAPERS, GOES OVER PAPERWORK WITH PATIENT, FILLS OUT CAB VOUCHER AND CALLS FOR A CAB, THEN HELPS PATIENT OUT OF ED PER WHEELCHAIR.
== END 2019-12-22 19:36 | disposition home or self-care (01) ==
LOC: ED 18:57
DX: R10.32 Left lower quadrant pain (principal); R05 Cough; G89.29 Other chronic pain; I25.2 Old myocardial infarction; J44.9 Chronic obstructive pulmonary disease, unspecified; F17.200 Nicotine dependence, unspecified, uncomplicated
CPT/HCPCS: 99283

== ENCOUNTER 2019-12-25 07:45 | Emergency (ER) | payer MEDICARE, MEDICAID ==
[~2019-12-25] VITALS: Ht 177.8 cm; Wt 68.2 kg
--- NOTE | 2019-12-25 07:59 | NUR ---
BIB EMS FROM [facility]. PT RPTS SUDDEN ONSET OF FEELING "HEART FLUTTERING" LASTING ABOUT 2 MIN, NOW RESSOLVED. DENIES XOB OR CP WITH EVENT. PT WITH FREQUENT COUGH, SOUNDS MOIST BUT PT SWALLOWS. PT SMOKES 1PPD FOR MANY YEARS. ALL MONITORS PLACED, EKG COMPLETED, PIV ESTABLISHED. VSS, CALL LIGHT W/I REACH, WARM BLANKET PROVIDED.
[2019-12-25 08:43] LABS: BASOPHILS # (AUTO) 0.02 x10^3/uL (0-0.1); BASOPHILS % (AUTO) 0 % (0-1); EOSINOPHILS # (AUTO) 0.11 x10^3/uL (0-0.4); EOSINOPHILS % (AUTO) 2 % (1-7); LYMPHOCYTES # (AUTO) 1.02 x10^3/uL (1-3.4); LYMPHOCYTES % (AUTO) 15 % (22-44); MD NO; MEAN CORPUSCULAR HEMOGLOBIN 30.7 pg (27.5-34.5); MEAN CORPUSCULAR HGB CONC 32.2 g/dL (33.2-36.2); MEAN CORPUSCULAR VOLUME 95.3 fL (81-97); MEAN PLATELET VOLUME 7.4 fL (7.4-10.4); MONOCYTES # (AUTO) 0.45 x10^3/uL (0.2-0.8); MONOCYTES % (AUTO) 7 % (2-9); NEUTROPHILS # (AUTO) 5.31 x10^3/uL (1.8-6.8); NEUTROPHILS % (AUTO) 77 % (42-75); PLATELET COUNT 238 x10^3/uL (130-400); RED BLOOD COUNT 3.78 x10^6/uL (4.38-5.82); RED CELL DISTRIBUTION WIDTH 16.6 % (9.4-14.8)
[2019-12-25 08:52] LABS: ALBUMIN 2.8 g/dL (3.4-5.0); ANION GAP 4 mmol/L (5-15); CALCIUM 8.7 mg/dL (8.5-10.1); CHLORIDE 109 mmol/L (98-107); CREATININE 0.97 mg/dL (0.7-1.3)
[2019-12-25 08:56] LABS: TROPONIN I 0.044 ng/mL (0.000-0.045)
[2019-12-25 09:01] VITALS: BP 156/83
--- NOTE | 2019-12-25 09:04 | NUR ---
TESTS RESULTED, CHART UP FOR RECHECK. PT AWARE.
--- NOTE | 2019-12-25 09:21 | NUR ---
Patient/Caregiver given discharge instructions and they have confirmed that they understand the instructions. Patient ambulatory with SINGLE CRUTCH
== END 2019-12-25 09:23 | disposition home or self-care (01) ==
LOC: ED 08:09
DX: J44.1 Chronic obstructive pulmonary disease with (acute) exacerbation (principal); F10.20 Alcohol dependence, uncomplicated; R00.2 Palpitations; R06.02 Shortness of breath; R07.89 Other chest pain; R10.9 Unspecified abdominal pain; G89.29 Other chronic pain; F17.200 Nicotine dependence, unspecified, uncomplicated; Z72.9 Problem related to lifestyle, unspecified; Y90.0 Blood alcohol level of less than 20 mg/100 ml
CPT/HCPCS: 36415; 71045; 80048; 82040; 83880; 84484; 85025; 93005; 99285

== ENCOUNTER 2019-12-29 15:22 | Emergency (ER) | payer MEDICARE, MEDICAID ==
[~2019-12-29] VITALS: Ht 172.7 cm; Wt 65.0 kg
[2019-12-29 15:32] VITALS: BP 112/66
--- NOTE | 2019-12-29 15:45 | NUR ---
PT BIB EMS FOR GI/NAUSEA. PT NOT IN DISTRESS. VSS
[2019-12-29 16:00] LABS: BASOPHILS # (AUTO) 0.03 x10^3/uL (0-0.1); BASOPHILS % (AUTO) 1 % (0-1); EOSINOPHILS % (AUTO) 3 % (1-7); LYMPHOCYTES # (AUTO) 1.59 x10^3/uL (1-3.4); LYMPHOCYTES % (AUTO) 25 % (22-44); MD NO; MEAN CORPUSCULAR HEMOGLOBIN 30.9 pg (27.5-34.5); MEAN CORPUSCULAR HGB CONC 32.3 g/dL (33.2-36.2); MEAN CORPUSCULAR VOLUME 95.5 fL (81-97); MONOCYTES # (AUTO) 0.45 x10^3/uL (0.2-0.8); MONOCYTES % (AUTO) 7 % (2-9); NEUTROPHILS # (AUTO) 4.14 x10^3/uL (1.8-6.8); NEUTROPHILS % (AUTO) 65 % (42-75); PLATELET COUNT 272 x10^3/uL (130-400); RED BLOOD COUNT 3.66 x10^6/uL (4.38-5.82); RED CELL DISTRIBUTION WIDTH 16.9 % (9.4-14.8)
[2019-12-29 16:10] LABS: ALANINE AMINOTRANSFERASE 27 U/L (12-78); ALBUMIN 2.9 g/dL (3.4-5.0); ANION GAP 5 mmol/L (5-15); CALCIUM 8.5 mg/dL (8.5-10.1); CHLORIDE 107 mmol/L (98-107)
[2019-12-29 16:13] LABS: ALKALINE PHOSPHATASE 112 U/L (45-117); BILIRUBIN,TOTAL 0.4 mg/dL (0.2-1.0); TOTAL PROTEIN 6.5 g/dL (6.4-8.2)
--- NOTE | 2019-12-29 16:46 | NUR ---
Patient/Caregiver given discharge instructions and they have confirmed that they understand the instructions. Patient ambulatory with steady gait.
== END 2019-12-29 16:48 | disposition home or self-care (01) ==
LOC: ED 15:45
DX: R10.84 Generalized abdominal pain (principal); G89.29 Other chronic pain; J44.9 Chronic obstructive pulmonary disease, unspecified; I25.2 Old myocardial infarction; Z72.9 Problem related to lifestyle, unspecified
CPT/HCPCS: 36415; 80053; 83690; 85025; 99283

== ENCOUNTER 2019-12-31 10:51 | Emergency (ER) | payer MEDICARE, MEDICAID ==
[~2019-12-31] VITALS: Ht 177.8 cm; Wt 68.0 kg
[2019-12-31 11:08] VITALS: BP 154/87
== END 2019-12-31 11:34 | disposition home or self-care (01) ==
LOC: ED 11:06
DX: F32.9 Major depressive disorder, single episode, unspecified (principal); R05 Cough; G89.29 Other chronic pain; J44.9 Chronic obstructive pulmonary disease, unspecified; F20.9 Schizophrenia, unspecified; I25.2 Old myocardial infarction; F17.200 Nicotine dependence, unspecified, uncomplicated
CPT/HCPCS: 99281; 99283

== ENCOUNTER 2020-01-06 11:56 | Emergency (ER) | payer MEDICARE, MEDICAID ==
[~2020-01-06] VITALS: Ht 177.8 cm; Wt 67.0 kg
--- NOTE | 2020-01-06 12:39 | NUR ---
Assummed care of patient. C/O nausea, LUQ pain,a nd right inguinal pain. Reports hx of inguinal hernia. No hernia palpated. Reports cough x 1 month and "not feeling like myself" for 6 months. Expressing concerns over the "illusions". Denies HI/SI. NAD. Easily eating sandwich. Will continue to monitor.
[2020-01-06 13:02] LABS: BASOPHILS % (AUTO) 0 % (0-1); EOSINOPHILS # (AUTO) 0.21 x10^3/uL (0-0.4); EOSINOPHILS % (AUTO) 3 % (1-7); LYMPHOCYTES # (AUTO) 1.28 x10^3/uL (1-3.4); LYMPHOCYTES % (AUTO) 18 % (22-44); MD NO; MEAN CORPUSCULAR VOLUME 93.9 fL (81-97); MEAN PLATELET VOLUME 7.6 fL (7.4-10.4); MONOCYTES # (AUTO) 0.48 x10^3/uL (0.2-0.8); MONOCYTES % (AUTO) 7 % (2-9); NEUTROPHILS # (AUTO) 4.98 x10^3/uL (1.8-6.8); NEUTROPHILS % (AUTO) 72 % (42-75); PLATELET COUNT 230 x10^3/uL (130-400); RED BLOOD COUNT 3.74 x10^6/uL (4.38-5.82); RED CELL DISTRIBUTION WIDTH 16.6 % (9.4-14.8)
[2020-01-06 13:13] LABS: ALANINE AMINOTRANSFERASE 20 U/L (12-78); ANION GAP 4 mmol/L (5-15); CALCIUM 8.6 mg/dL (8.5-10.1); CHLORIDE 108 mmol/L (98-107)
[2020-01-06 13:16] LABS: ALKALINE PHOSPHATASE 98 U/L (45-117); BILIRUBIN,TOTAL 0.3 mg/dL (0.2-1.0); CREATININE 1.18 mg/dL (0.7-1.3); TOTAL PROTEIN 6.6 g/dL (6.4-8.2)
--- NOTE | 2020-01-06 13:30 | NUR ---
Patient resting comfortably. No needs.
[2020-01-06 13:31] LABS: MICROSCOPIC NOT IND
[2020-01-06 13:36] LABS: CULTURE INDICATED? NO
[2020-01-06 14:08] VITALS: BP 129/73
--- NOTE | 2020-01-06 14:19 | NUR ---
Patient/Caregiver given discharge instructions and they have confirmed that they understand the instructions. Patient ambulatory with steady gait.
== END 2020-01-06 14:32 | disposition home or self-care (01) ==
LOC: ED 12:11
DX: S39.011A Strain of muscle, fascia and tendon of abdomen, initial encounter (principal); R10.84 Generalized abdominal pain; R05 Cough; N50.811 Right testicular pain; R94.31 Abnormal electrocardiogram [ECG] [EKG]; J44.9 Chronic obstructive pulmonary disease, unspecified; F17.200 Nicotine dependence, unspecified, uncomplicated; X58.XXXA Exposure to other specified factors, initial encounter; Y93.89 Activity, other specified; Y92.89 Other specified places as the place of occurrence of the external cause; Y99.8 Other external cause status
CPT/HCPCS: 36415; 76870; 80053; 81003; 85025; 93005; 99285

== ENCOUNTER 2020-01-07 17:23 | Emergency (ER) | payer MEDICARE, MEDICAID ==
[~2020-01-07] VITALS: Ht 177.8 cm; Wt 68.0 kg
[2020-01-07 17:32] VITALS: BP 115/75
== END 2020-01-07 18:14 | disposition home or self-care (01) ==
LOC: ED 17:51
DX: F22 Delusional disorders (principal); Z72.9 Problem related to lifestyle, unspecified; I10 Essential (primary) hypertension; J44.9 Chronic obstructive pulmonary disease, unspecified; I25.2 Old myocardial infarction; F20.9 Schizophrenia, unspecified
CPT/HCPCS: 99283

== ENCOUNTER 2020-01-10 10:33 | Emergency (ER) | payer MEDICARE, MEDICAID ==
[~2020-01-10] VITALS: Ht 177.8 cm; Wt 66.0 kg
--- NOTE | 2020-01-10 10:43 | NUR ---
PT BIB EMS FOR "HAVING A FUNNY TASTE IN HIS MOUTH". VITALS STABLE. NAD.
[2020-01-10] MEDS ORDERED: DICYCLOMINE 10 MG CAPSULE PO ONE (11:00)
[2020-01-10] MEDS ORDERED: DICYCLOMINE 20 MG TABLET ONE (11:02)
--- NOTE | 2020-01-10 11:10 | NUR ---
PT MEDICATED PER MAR
[2020-01-10 11:22] LABS: MEAN CORPUSCULAR HEMOGLOBIN 30.8 pg (27.5-34.5); MEAN CORPUSCULAR HGB CONC 32.4 g/dL (33.2-36.2); MEAN CORPUSCULAR VOLUME 95.2 fL (81-97); MEAN PLATELET VOLUME 7.5 fL (7.4-10.4); PLATELET COUNT 232 x10^3/uL (130-400); RED CELL DISTRIBUTION WIDTH 16.7 % (9.4-14.8)
--- NOTE | 2020-01-10 11:28 | NUR ---
ICT DEVELOPER: TREVOR FROM RADIOLOGY STATES PT REFUSES IMAGING.
[2020-01-10 11:29] VITALS: BP 98/65
--- NOTE | 2020-01-10 11:29 | NUR ---
PT RESTING IN [facility]. VSS. NAD.
[2020-01-10 11:30] LABS: MICROSCOPIC NOT IND
[2020-01-10 11:31] LABS: ANION GAP 7 mmol/L (5-15); CALCIUM 8.7 mg/dL (8.5-10.1); CHLORIDE 108 mmol/L (98-107)
[2020-01-10 11:35] LABS: ALANINE AMINOTRANSFERASE 22 U/L (12-78); ALKALINE PHOSPHATASE 99 U/L (45-117); BILIRUBIN,TOTAL 0.8 mg/dL (0.2-1.0); CREATININE 1.07 mg/dL (0.7-1.3); TOTAL PROTEIN 6.5 g/dL (6.4-8.2)
[2020-01-10 11:41] LABS: CULTURE INDICATED? NO
[2020-01-10 12:00] LABS: BASOPHILS # (AUTO) 0.03 x10^3/uL (0-0.1); BASOPHILS % (AUTO) 0 % (0-1); EOSINOPHILS # (AUTO) 0.04 x10^3/uL (0-0.4); EOSINOPHILS % (AUTO) 0 % (1-7); LYMPHOCYTES # (AUTO) 1.24 x10^3/uL (1-3.4); LYMPHOCYTES % (AUTO) 14 % (22-44); MD SCAN; MONOCYTES # (AUTO) 0.35 x10^3/uL (0.2-0.8); MONOCYTES % (AUTO) 4 % (2-9); NEUTROPHILS # (AUTO) 7.36 x10^3/uL (1.8-6.8); NEUTROPHILS % (AUTO) 82 % (42-75)
== END 2020-01-10 12:54 | disposition home or self-care (01) ==
LOC: ED 10:50
DX: R10.84 Generalized abdominal pain (principal); K59.00 Constipation, unspecified; I10 Essential (primary) hypertension; I25.2 Old myocardial infarction; J44.9 Chronic obstructive pulmonary disease, unspecified
CPT/HCPCS: 36415; 74021; 80053; 81003; 83690; 85025; 99284

== ENCOUNTER 2020-01-11 20:02 | Emergency (ER) | payer MEDICARE, MEDICAID ==
[~2020-01-11] VITALS: Ht 182.9 cm; Wt 63.6 kg
--- NOTE | 2020-01-11 21:07 | NUR ---
assumed care of the patient at this time.
[2020-01-11 22:19] VITALS: BP 128/76
== END 2020-01-11 22:27 | disposition home or self-care (01) ==
LOC: ED 21:12
DX: G89.11 Acute pain due to trauma (principal); R07.81 Pleurodynia; I10 Essential (primary) hypertension; J44.9 Chronic obstructive pulmonary disease, unspecified; Y04.8XXA Assault by other bodily force, initial encounter; Y93.89 Activity, other specified; Y92.488 Other paved roadways as the place of occurrence of the external cause; Y99.8 Other external cause status
CPT/HCPCS: 99283

== ENCOUNTER 2020-01-14 17:33 | Emergency (ER) | payer MEDICARE, MEDICAID ==
[~2020-01-14] VITALS: Ht 177.8 cm; Wt 68.0 kg
[2020-01-14 17:43] VITALS: BP 104/65
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
--- NOTE | 2020-01-14 17:53 | NUR ---
During SI assessment pt expressed that "you either do it or you don't. You don't plan that Sh out." Notified charge nurse of pts responces.
--- NOTE | 2020-01-14 18:51 | NUR ---
REPORT FROM ANDRES Martinez RN, ASSUMING CARE OF PT AT THIS TIME
[2020-01-14] MEDS ORDERED: ACETAMINOPHEN 500 MG TABLET ONE (18:54)
[2020-01-14] MEDS ORDERED: ACETAMINOPHEN 500 MG TABLET PO ONE (19:00)
== END 2020-01-14 19:17 | disposition home or self-care (01) ==
LOC: ED 19:04
DX: S20.222A Contusion of left back wall of thorax, initial encounter (principal); I10 Essential (primary) hypertension; I25.2 Old myocardial infarction; J44.9 Chronic obstructive pulmonary disease, unspecified; W23.0XXA Caught, crushed, jammed, or pinched between moving objects, initial encounter; Y93.89 Activity, other specified; Y92.89 Other specified places as the place of occurrence of the external cause; Y99.8 Other external cause status
CPT/HCPCS: 99283

== ENCOUNTER 2020-02-12 06:21 | Emergency (ER) | payer MEDICARE, MEDICAID ==
[2020-02-12 06:32] VITALS: BP 103/65
--- NOTE | 2020-02-12 06:37 | NUR ---
Pt bib [facility] c/o right leg pain for approx 1 year. ETOH odor present. Pt recently returned from [facility], unknown if he has been in close contact with COVID+ pts, but states "probably." Pt rambling during triage, stated "I know how this place works. You get blood taken, you do a piss test, you get a sandwich, and you get put out." Resp even and unlabored, in no acute distress. Monitors in place, call light within reach.
--- NOTE | 2020-02-12 06:50 | NUR ---
Took report from Juli MACHADO, assume care at this time. Pt not in destress, rr even and unlabored. Call light in reach. Denies any needs at this time.
== END 2020-02-12 07:49 | disposition home or self-care (01) ==
LOC: ED 06:25
DX: R26.2 Difficulty in walking, not elsewhere classified (principal); I25.2 Old myocardial infarction; I10 Essential (primary) hypertension; J44.9 Chronic obstructive pulmonary disease, unspecified; G89.29 Other chronic pain
CPT/HCPCS: 99283

== ENCOUNTER 2020-03-24 08:54 | Emergency (ER) | payer MEDICARE, MEDICAID ==
[~2020-03-24] VITALS: Ht 185.4 cm; Wt 68.0 kg
[2020-03-24 08:55] VITALS: BP 100/64
--- NOTE | 2020-03-24 09:02 | NUR ---
PT IN SHOWER. RUTH EMT TO ASSIST.
--- NOTE | 2020-03-24 09:15 | NUR ---
ASSUMING PT CARE AT THIS TIME. PT STILL IN DECON ROOM.
--- NOTE | 2020-03-24 09:23 | NUR ---
PT TO ROOM AT THIS TIME. PT HAS ALL PERSONAL BELONGINGS IN ROOM. PT STATES "I'M HERE FOR A SHOWER AND CLEAN CLOTHES. I'M SURE I'M GOING TO HAVE TO GIVE BLOOD. IF NOT THAT WOULD BE GREAT." NADN. SNYDER. PT ALSO HAS WALKER IN ROOM BEDSIDE.
--- NOTE | 2020-03-24 10:51 | NUR ---
Patient/Caregiver given discharge instructions and they have confirmed that they understand the instructions. Patient ambulatory with steady gait USING WALKER. PT REFUSING TO TAKE ALL PERSONAL BELONGINGS. PT GIVEN TAXI VOUCHER
== END 2020-03-24 10:53 | disposition home or self-care (01) ==
LOC: ED 09:54
DX: R19.7 Diarrhea, unspecified (principal); M79.604 Pain in right leg; J44.9 Chronic obstructive pulmonary disease, unspecified
CPT/HCPCS: 99281

== ENCOUNTER 2020-03-28 07:22 | Emergency (ER) | payer MEDICARE, MEDICAID ==
[~2020-03-28] VITALS: Ht 177.8 cm; Wt 68.1 kg
--- NOTE | 2020-03-28 07:39 | NUR ---
BIB [facility] FOR "MY URINE IS YELLOW" PT HAS LOW BS. PT GIVEN TWO ORANGE JUICE.PT IN BED WITH CONT SPO2, BP Q 30 MIN, SIDE RAILS UP X2, CALL LIGHT IN REACH.
--- NOTE | 2020-03-28 07:59 | NUR ---
LAB IN ROOM
[2020-03-28 08:16] LABS: BASOPHILS # (AUTO) 0.01 x10^3/uL (0-0.1); BASOPHILS % (AUTO) 0 % (0-1); EOSINOPHILS # (AUTO) 0.21 x10^3/uL (0-0.4); EOSINOPHILS % (AUTO) 3 % (1-7); LYMPHOCYTES # (AUTO) 1.37 x10^3/uL (1-3.4); LYMPHOCYTES % (AUTO) 22 % (22-44); MD NO; MEAN CORPUSCULAR HEMOGLOBIN 30.8 pg (27.5-34.5); MEAN CORPUSCULAR HGB CONC 32.2 g/dL (33.2-36.2); MEAN CORPUSCULAR VOLUME 95.6 fL (81-97); MEAN PLATELET VOLUME 7.7 fL (7.4-10.4); MONOCYTES # (AUTO) 0.36 x10^3/uL (0.2-0.8); MONOCYTES % (AUTO) 6 % (2-9); NEUTROPHILS % (AUTO) 69 % (42-75); PLATELET COUNT 199 x10^3/uL (130-400); RED BLOOD COUNT 3.84 x10^6/uL (4.38-5.82); RED CELL DISTRIBUTION WIDTH 17.5 % (9.4-14.8)
[2020-03-28 08:28] LABS: ALBUMIN 3.3 g/dL (3.4-5.0); ANION GAP 5 mmol/L (5-15); CALCIUM 8.6 mg/dL (8.5-10.1); CHLORIDE 106 mmol/L (98-107)
--- NOTE | 2020-03-28 08:30 | NUR ---
ED DIET TRAY GIVEN
[2020-03-28 09:20] LABS: MICROSCOPIC NOT IND
--- NOTE | 2020-03-28 10:10 | NUR ---
CALLED [facility] AND SET UP A RIDE AND APT FOR FRIDAY. PT THANKED STAFF FOR CARE
[2020-03-28 10:16] VITALS: BP 124/74
== END 2020-03-28 10:17 | disposition home or self-care (01) ==
LOC: ED 08:16
DX: E16.2 Hypoglycemia, unspecified (principal); I10 Essential (primary) hypertension; J44.9 Chronic obstructive pulmonary disease, unspecified; I25.2 Old myocardial infarction; F17.200 Nicotine dependence, unspecified, uncomplicated
CPT/HCPCS: 36415; 80048; 81003; 82040; 85025; 99283

== ENCOUNTER 2020-04-05 12:10 | Emergency (ER) | payer MEDICARE, MEDICAID ==
[~2020-04-05] VITALS: Ht 177.8 cm; Wt 66.9 kg
[2020-04-05 12:15] VITALS: BP 122/78
--- NOTE | 2020-04-05 13:52 | NUR ---
BINDING NICKER: PT WALKED BACK FROM [facility]. STEADY UPON AMBULATION. NO ACUTE DISTRESS NOTED.
[2020-04-05] MEDS ORDERED: NEOSPORIN OINT. PKT 1 PACKET ONE (14:03)
== END 2020-04-05 14:17 | disposition home or self-care (01) ==
LOC: ED 14:00
DX: M79.642 Pain in left hand (principal)
CPT/HCPCS: 99282

== ENCOUNTER 2020-04-09 09:18 | Emergency (ER) | payer MEDICARE, MEDICAID ==
[~2020-04-09] VITALS: Ht 175.3 cm; Wt 70.0 kg
[2020-04-09 09:25] VITALS: BP 152/82
[2020-04-09 09:46] LABS: BASOPHILS # (AUTO) 0.03 x10^3/uL (0-0.1); BASOPHILS % (AUTO) 1 % (0-1); EOSINOPHILS # (AUTO) 0.13 x10^3/uL (0-0.4); EOSINOPHILS % (AUTO) 2 % (1-7); LYMPHOCYTES # (AUTO) 1.27 x10^3/uL (1-3.4); LYMPHOCYTES % (AUTO) 20 % (22-44); MD NO; MEAN CORPUSCULAR HEMOGLOBIN 31.5 pg (27.5-34.5); MEAN CORPUSCULAR VOLUME 95.6 fL (81-97); MEAN PLATELET VOLUME 7.4 fL (7.4-10.4); MONOCYTES # (AUTO) 0.51 x10^3/uL (0.2-0.8); MONOCYTES % (AUTO) 8 % (2-9); NEUTROPHILS % (AUTO) 69 % (42-75); PLATELET COUNT 199 x10^3/uL (130-400); RED BLOOD COUNT 3.68 x10^6/uL (4.38-5.82)
[2020-04-09 09:59] LABS: ALANINE AMINOTRANSFERASE 12 U/L (12-78); ALBUMIN 3.2 g/dL (3.4-5.0); ANION GAP 5 mmol/L (5-15); CALCIUM 8.9 mg/dL (8.5-10.1); CHLORIDE 110 mmol/L (98-107); CREATININE 1.01 mg/dL (0.7-1.3)
[2020-04-09 10:03] LABS: ALKALINE PHOSPHATASE 85 U/L (45-117); BILIRUBIN,TOTAL 0.5 mg/dL (0.2-1.0); TOTAL PROTEIN 6.5 g/dL (6.4-8.2); TROPONIN I < 0.015 ng/mL (0.000-0.045)
[2020-04-09 10:54] LABS: MICROSCOPIC NOT IND
--- NOTE | 2020-04-09 11:06 | NUR ---
pt resting, given water and crackers. vss
--- NOTE | 2020-04-09 12:08 | NUR ---
Patient/Caregiver given discharge instructions and they have confirmed that they understand the instructions. Patient ambulatory with steady gait.
== END 2020-04-09 12:10 | disposition home or self-care (01) ==
LOC: ED 12:00
DX: R53.1 Weakness (principal); R20.2 Paresthesia of skin; M79.89 Other specified soft tissue disorders; R94.31 Abnormal electrocardiogram [ECG] [EKG]; F17.210 Nicotine dependence, cigarettes, uncomplicated; G89.29 Other chronic pain; J44.9 Chronic obstructive pulmonary disease, unspecified; I25.2 Old myocardial infarction
CPT/HCPCS: 36415; 80053; 81003; 84484; 85025; 93005; 99284; 99406

== ENCOUNTER 2020-04-12 19:38 | Emergency (ER) | payer MEDICARE, MEDICAID ==
[~2020-04-12] VITALS: Ht 177.8 cm; Wt 150.0 kg
[2020-04-12] MEDS ORDERED: SODIUM CHLORIDE 0.9% 1,000ML IVBOLUS ONE (20:30)
[2020-04-12] MEDS ORDERED: SODIUM CHLORIDE FLUSH 10ML SYR IVF ONE (20:30)
[2020-04-12 20:58] LABS: BASOPHILS # (AUTO) 0.07 x10^3/uL (0-0.1); BASOPHILS % (AUTO) 1 % (0-1); EOSINOPHILS # (AUTO) 0.33 x10^3/uL (0-0.4); EOSINOPHILS % (AUTO) 5 % (1-7); LYMPHOCYTES # (AUTO) 1.65 x10^3/uL (1-3.4); LYMPHOCYTES % (AUTO) 24 % (22-44); MD NO; MEAN CORPUSCULAR HEMOGLOBIN 31.9 pg (27.5-34.5); MEAN CORPUSCULAR HGB CONC 33.5 g/dL (33.2-36.2); MEAN CORPUSCULAR VOLUME 95.1 fL (81-97); MEAN PLATELET VOLUME 7.4 fL (7.4-10.4); MONOCYTES # (AUTO) 0.51 x10^3/uL (0.2-0.8); MONOCYTES % (AUTO) 7 % (2-9); NEUTROPHILS # (AUTO) 4.33 x10^3/uL (1.8-6.8); NEUTROPHILS % (AUTO) 63 % (42-75); PLATELET COUNT 210 x10^3/uL (130-400); RED BLOOD COUNT 3.31 x10^6/uL (4.38-5.82); RED CELL DISTRIBUTION WIDTH 17.5 % (9.4-14.8)
[2020-04-12 21:07] LABS: ALANINE AMINOTRANSFERASE 15 U/L (12-78); ALBUMIN 2.9 g/dL (3.4-5.0); ANION GAP 4 mmol/L (5-15); CALCIUM 7.8 mg/dL (8.5-10.1); CHLORIDE 107 mmol/L (98-107); CREATININE 1.01 mg/dL (0.7-1.3)
[2020-04-12 21:11] LABS: ALKALINE PHOSPHATASE 93 U/L (45-117); BILIRUBIN,TOTAL 0.3 mg/dL (0.2-1.0); TOTAL PROTEIN 5.9 g/dL (6.4-8.2); TROPONIN I < 0.015 ng/mL (0.000-0.045)
--- NOTE | 2020-04-12 21:26 | NUR ---
PT RESTING ON GURNEY WITH EYES CLOSED, RESPIRATIONS EVEN AND NONLABORED. MONITORING IN PLACE, CALL LIGHT WIHTIN REACH, ALL SAFETY MEASURES IN PLACE.
[2020-04-12 22:05] VITALS: BP 114/58
== END 2020-04-12 22:08 | disposition home or self-care (01) ==
LOC: ED 22:02
DX: R11.0 Nausea (principal); E86.0 Dehydration
CPT/HCPCS: 36415; 80053; 84484; 85025; 96360; 99283; J7030

== ENCOUNTER 2020-04-14 16:00 | Emergency (ER) | payer MEDICARE, MEDICAID ==
[~2020-04-14] VITALS: Ht 177.8 cm; Wt 68.2 kg
[2020-04-14 16:12] VITALS: BP 130/73
--- NOTE | 2020-04-14 18:18 | NUR ---
Patient/Caregiver given discharge instructions and they have confirmed that they understand the instructions. Patient ambulatory with steady gait.
== END 2020-04-14 18:20 | disposition home or self-care (01) ==
LOC: ED 17:16
DX: R60.0 Localized edema (principal); J44.9 Chronic obstructive pulmonary disease, unspecified; I25.2 Old myocardial infarction; I10 Essential (primary) hypertension; E16.2 Hypoglycemia, unspecified; Z72.9 Problem related to lifestyle, unspecified
CPT/HCPCS: 99281

== ENCOUNTER 2020-04-18 12:09 | Emergency (ER) | payer MEDICARE, MEDICAID ==
[~2020-04-18] VITALS: Ht 177.8 cm; Wt 70.0 kg
[2020-04-18 13:00] VITALS: BP 107/62
--- NOTE | 2020-04-18 13:23 | NUR ---
PT SEEN AND EXAMINED BY THEA COLES, PT GIVEN DC INSTRUCTIONS AND BUS PASS AT REQUEST. PT AMBULATORY WITH STEADY GAIT USING OWN WALKER, PROVIDED WC ESCORT TO DC. PT DISCHARGED WITH JACKET AND OWN WALKER. PT A&O, RESPS EVEN AND UNLABORED, NADN AT DISCHARGE.
== END 2020-04-18 13:23 | disposition home or self-care (01) ==
LOC: ED 13:00
DX: R60.0 Localized edema (principal); Z72.9 Problem related to lifestyle, unspecified; Z59.0 Homelessness; R94.31 Abnormal electrocardiogram [ECG] [EKG]; I10 Essential (primary) hypertension; I25.2 Old myocardial infarction; J44.9 Chronic obstructive pulmonary disease, unspecified; F17.200 Nicotine dependence, unspecified, uncomplicated
CPT/HCPCS: 93005; 99283

== ENCOUNTER 2020-05-29 16:12 | Emergency (ER) | payer MEDICARE, MEDICAID ==
[~2020-05-29] VITALS: Ht 177.8 cm; Wt 66.3 kg
[2020-05-29 16:15] VITALS: BP 117/61
--- NOTE | 2020-05-29 19:12 | NUR ---
SERVICER TRAVEL TRAILERS: PT TO ROOM FROM LOBBY
[2020-05-29] MEDS ORDERED: LIDOCAINE-MPF 1%, 5ML ONE (19:21)
== END 2020-05-29 20:10 ==
LOC: ED 20:00
DX: L60.0 Ingrowing nail (principal); L03.032 Cellulitis of left toe; R94.31 Abnormal electrocardiogram [ECG] [EKG]; I10 Essential (primary) hypertension; J44.9 Chronic obstructive pulmonary disease, unspecified; I25.2 Old myocardial infarction; G89.29 Other chronic pain; F17.210 Nicotine dependence, cigarettes, uncomplicated
CPT/HCPCS: 11730; 93005; 99284

== ENCOUNTER 2020-06-27 11:12 | Emergency (ER) | payer MEDICARE, MEDICAID ==
[~2020-06-27] VITALS: Ht 177.8 cm; Wt 58.3 kg
[2020-06-27 11:42] VITALS: BP 124/71
--- NOTE | 2020-06-27 11:43 | NUR ---
Patient/Caregiver given discharge instructions and they have confirmed that they understand the instructions. Patient ambulatory with steady gait. BUS PASS GIVEN
== END 2020-06-27 11:44 | disposition home or self-care (01) ==
LOC: ED 11:31
DX: R11.0 Nausea (principal); I10 Essential (primary) hypertension; I25.2 Old myocardial infarction; J44.9 Chronic obstructive pulmonary disease, unspecified; F20.9 Schizophrenia, unspecified
CPT/HCPCS: 99283

== ENCOUNTER 2020-07-03 16:48 | Emergency (ER) | payer MEDICARE, MEDICAID ==
[~2020-07-03] VITALS: Ht 177.8 cm; Wt 60.0 kg
[2020-07-03 17:30] VITALS: BP 108/88
== END 2020-07-03 18:31 | disposition home or self-care (01) ==
LOC: ED 18:00
DX: F20.0 Paranoid schizophrenia (principal); F41.1 Generalized anxiety disorder; Z72.9 Problem related to lifestyle, unspecified
CPT/HCPCS: 99283

== ENCOUNTER 2020-07-11 15:39 | Emergency (ER) | payer MEDICARE, MEDICAID ==
[~2020-07-11] VITALS: Ht 182.9 cm; Wt 63.6 kg
[2020-07-11 15:52] VITALS: BP 122/70
== END 2020-07-11 16:18 | disposition home or self-care (01) ==
LOC: ED 15:58
DX: F20.89 Other schizophrenia (principal); I10 Essential (primary) hypertension; I25.2 Old myocardial infarction; J44.9 Chronic obstructive pulmonary disease, unspecified
CPT/HCPCS: 99283

== ENCOUNTER 2020-07-11 16:56 | Emergency (ER) | payer MEDICAID, MEDICARE ==
[~2020-07-11] VITALS: Ht 177.8 cm; Wt 68.1 kg
[2020-07-11 17:01] VITALS: BP 119/68
--- NOTE | 2020-07-11 19:19 | NUR ---
pt called to room from lobby
== END 2020-07-11 19:44 | disposition home or self-care (01) ==
LOC: ED 19:35
DX: Z59.0 Homelessness (principal); F17.210 Nicotine dependence, cigarettes, uncomplicated; Z72.9 Problem related to lifestyle, unspecified; G89.29 Other chronic pain; J44.9 Chronic obstructive pulmonary disease, unspecified; I10 Essential (primary) hypertension; I25.2 Old myocardial infarction
CPT/HCPCS: 99281; 99406

== ENCOUNTER 2020-07-24 17:19 | Inpatient (IN) | payer MEDICARE, MEDICAID ==
[~2020-07-24] VITALS: Ht 172.7 cm; Wt 68.0 kg
[2020-07-24] MEDS ORDERED: ALBUTEROL/IPRATROPIUM 2.5MG/0.5MG, 3 ML NEB ONE (18:00)
--- NOTE | 2020-07-24 18:10 | NUR ---
CXR AT BEDSIDE
--- NOTE | 2020-07-24 18:40 | NUR ---
PATIENT REFUSING NEBULIZER- DESPITE REDIRECTION "I DON'T LIKE KIESHA IN MY FACE."
[2020-07-24 19:00] LABS: ALBUMIN 3.1 g/dL (3.4-5.0); ANION GAP 4 mmol/L (5-15); CALCIUM 8.9 mg/dL (8.5-10.1); CHLORIDE 108 mmol/L (98-107)
[2020-07-24] MEDS ORDERED: AZITHROMYCIN 500 MG in SODIUM CHLORIDE 0.9% 250 ML IV ONE (19:00)
[2020-07-24 19:10] LABS: ALANINE AMINOTRANSFERASE 25 U/L (12-78); ALKALINE PHOSPHATASE 102 U/L (45-117); BILIRUBIN,TOTAL 0.3 mg/dL (0.2-1.0); C-REACTIVE PROTEIN, QUANT 2.22 mg/dL (0.02-0.49); CREATININE 0.98 mg/dL (0.7-1.3)
--- NOTE | 2020-07-24 19:10 | NUR ---
UNABLE TO OBTAIN GOOD WAVEFORM FOR ROOM AIR POX DESPITE DIFFERENT TECHNIQUES-PROVIDER MADE AWARE- TO PLACE ABG
--- NOTE | 2020-07-24 19:12 | NUR ---
ORDER PLACED PER PROTOCOL FOR TWO BLOOD CULTURES ALREADY IN LAB (YIFAN EARLIER WITH BASIC LAB DRAW) PATIENT THEN MEDICATED PER EMAR WITH ABX
[2020-07-24 19:14] LABS: BASOPHILS % (AUTO) 1 % (0-1); EOSINOPHILS % (AUTO) 3 % (1-7); LYMPHOCYTES % (AUTO) 27 % (22-44); MEAN CORPUSCULAR HGB CONC 33.4 g/dL (33.2-36.2); MEAN PLATELET VOLUME 7.8 fL (7.4-10.4); MONOCYTES % (AUTO) 8 % (2-9); NEUTROPHILS % (AUTO) 61 % (42-75); PLATELET COUNT 212 x10^3/uL (130-400); RED BLOOD COUNT 3.76 x10^6/uL (4.38-5.82); RED CELL DISTRIBUTION WIDTH 13.9 % (9.4-14.8)
[2020-07-24 19:15] LABS: MD NO
[2020-07-24] MEDS ORDERED: ACETAMINOPHEN 325 MG TABLET PO PRN (20:30)
[2020-07-24] MEDS ORDERED: CEFTRIAXONE PMX 1GM/50ML 50 ML IV SCH (20:30)
[2020-07-24] MEDS ORDERED: DEXAMETHASONE 4 MG/ML, 5ML IVPush ONE (20:30)
[2020-07-24] MEDS ORDERED: GUAIFENESIN/DM 200-20MG, 10ML UDC PO PRN (20:30)
[2020-07-24] MEDS ORDERED: AZITHROMYCIN 500 MG in SODIUM CHLORIDE 0.9% 250 ML IV SCH (20:30)
[2020-07-24] MEDS ORDERED: BISACODYL 10 MG SUPP PR PRN (20:30)
[2020-07-24] MEDS ORDERED: MELATONIN 5 MG TABLET PO PRN (20:30)
[2020-07-24] MEDS ORDERED: POLYETHYLENE GLYCOL 17 GM PACKET PO PRN (20:30)
[2020-07-24] MEDS ORDERED: ONDANSETRON ODT 4 MG PO PRN (20:30)
--- NOTE | 2020-07-24 20:49 | NUR ---
PROVIDED WITH DINNER TRAY MOVED TO HOSPITAL BED WEANED TO ROOM AIR-MINIMAL WOB
[2020-07-24] MEDS ORDERED: CEFTRIAXONE PMX 1GM/50ML 50 ML ONE (21:32)
[2020-07-24] MEDS ORDERED: DEXAMETHASONE 4 MG/ML, 1ML ONE (21:32)
[2020-07-24] MEDS ORDERED: HEPARIN 5,000 UNITS/ML, 1ML ONE (21:32)
[2020-07-24] MEDS: HEPARIN 5,000 UNITS/ML, 1ML SQ SCH (21:36)
[2020-07-24 22:30] VITALS: BP 148/87
[2020-07-24] MEDS: SODIUM CHLORIDE FLUSH 10ML SYR IVF SCH (22:37)
[2020-07-25 01:16] VITALS: BP 163/98
[2020-07-25] MEDS ORDERED: DEXAMETHASONE 4 MG/ML, 1ML IVPush ONE (01:30)
[2020-07-25] MEDS: HEPARIN 5,000 UNITS/ML, 1ML SQ SCH ×2 (04:58→12:14)
[2020-07-25 06:56] VITALS: BP 122/78
[2020-07-25] MEDS: SODIUM CHLORIDE FLUSH 10ML SYR IVF SCH (08:48)
[2020-07-25] MEDS ORDERED: DEXAMETHASONE 4 MG/ML, 1ML IVPush SCH (09:00)
[2020-07-25] MEDS: ALBUTEROL-IPRATROPIUM MDI INH INH SCH ×2 (09:00→16:00)
[2020-07-25] MEDS ORDERED: SENNA/DOCUSATE TABLET PO SCH (09:00)
[2020-07-25] MEDS ORDERED: FLUTICASONE/VILANTEROL 200-25MCG/INH INH SCH (09:00)
[2020-07-25] MEDS ORDERED: ASCO500T7 PO (15:36)
[2020-07-25] MEDS ORDERED: CHOL10003 PO (15:36)
[2020-07-25] MEDS ORDERED: THIA100T67 PO (15:36)
[2020-07-25] MEDS ORDERED: MELA5TAB14 PO (15:36)
[2020-07-25] MEDS ORDERED: AZIT250T PO (15:36)
[2020-07-25] MEDS ORDERED: GUAI12009 PO (15:36)
[2020-07-25] MEDS ORDERED: CEFD300C37 PO (15:36)
[2020-07-25] MEDS ORDERED: ZINC100T PO (15:36)
== END 2020-07-25 17:00 | disposition home or self-care (01) | DRG 177 ==
LOC: ED 19:19 → EDIP 19:28 → 3N 07-25 01:15
PROVIDERS: ADMIT Family Medicine; ATTEND Family Medicine
DX: U07.1 COVID-19 (principal); J96.01 Acute respiratory failure with hypoxia; J12.89 Other viral pneumonia; F20.0 Paranoid schizophrenia; I50.22 Chronic systolic (congestive) heart failure; J44.0 Chronic obstructive pulmonary disease with (acute) lower respiratory infection; Z72.0 Tobacco use; I25.2 Old myocardial infarction; I11.0 Hypertensive heart disease with heart failure; F12.90 Cannabis use, unspecified, uncomplicated; D64.9 Anemia, unspecified; I48.0 Paroxysmal atrial fibrillation; M54.5 Low back pain; G89.29 Other chronic pain; Z59.0 Homelessness
CPT/HCPCS: 36415; 36600; 71045; 80053; 82728; 82803; 83605; 83615; 84145; 85025; 86140; 87040; 93005; 96361; 96374; J0456; J0696; J1100; J1644; J7050

== ENCOUNTER 2020-08-02 07:12 | Emergency (ER) | payer MEDICARE, MEDICAID ==
[~2020-08-02] VITALS: Ht 177.8 cm; Wt 7.3 kg
[~2020-08-02 07:12] MED LIST changes: +ASCO500T7 PO; +AZIT250T PO; +CEFD300C37 PO; +CHOL10003 PO; +GUAI12009 PO; +MELA5TAB14 PO; +THIA100T67 PO; +ZINC100T PO
--- NOTE | 2020-08-02 07:32 | NUR ---
PT SEEN IN ED A FEW DAYS AGO WAS COVID + WAS SENT UPSTAIRS PT LEFT AMA WITHIN 24 HRS. PER EMS WAS CALLED FROM [facility] PT WAS NOT ACTING APPROPRIATE AND BROUGHT TO ED PT HAD C/O TROUBLE BREATHING AND FOUL TASTE IN MOUTH. PT WAS SATING 75-80% RA PLACED ON 4L NC. PER EMS 95% 4L NC, BP 170/90, HR 65. PT TESTED ON RA ON ARRIVAL SATING 98% W/ GOOD WAVEFORM. ERP DR. LING AWARE AND IS AT BEDSIDE. MONITORS APPLIED. EKG COMPLETED. PT RESTING ON GURNEY. NADN.
[2020-08-02 08:01] LABS: BASOPHILS % (AUTO) 1 % (0-1); EOSINOPHILS % (AUTO) 2 % (1-7); LYMPHOCYTES % (AUTO) 15 % (22-44); MEAN CORPUSCULAR HEMOGLOBIN 32.3 pg (27.5-34.5); MEAN CORPUSCULAR HGB CONC 33.7 g/dL (33.2-36.2); MEAN PLATELET VOLUME 7.6 fL (7.4-10.4); MONOCYTES % (AUTO) 9 % (2-9); NEUTROPHILS % (AUTO) 74 % (42-75); PLATELET COUNT 236 x10^3/uL (130-400); RED BLOOD COUNT 3.77 x10^6/uL (4.38-5.82); RED CELL DISTRIBUTION WIDTH 13.7 % (9.4-14.8)
[2020-08-02 08:03] LABS: MD NO
[2020-08-02 08:12] LABS: ALANINE AMINOTRANSFERASE 17 U/L (12-78); ALBUMIN 3.4 g/dL (3.4-5.0); ANION GAP 5 mmol/L (5-15); CALCIUM 8.7 mg/dL (8.5-10.1); CHLORIDE 107 mmol/L (98-107); CREATININE 0.95 mg/dL (0.7-1.3)
[2020-08-02 08:14] LABS: ALKALINE PHOSPHATASE 99 U/L (45-117); BILIRUBIN,TOTAL 0.6 mg/dL (0.2-1.0); TOTAL PROTEIN 7.2 g/dL (6.4-8.2)
[2020-08-02 09:02] VITALS: BP 161/88
--- NOTE | 2020-08-02 09:26 | NUR ---
PT REQUESTING ABX FOR HOME. SPOKE W/ ERP DR. LING IN REGARDS TO REQUEST. PER ERP DR. LING NO ABX WILL BE PRESCRIBED FOR PT. PT MADE AWARE AND IS UPSET BUT IS AGREEABLE.
== END 2020-08-02 09:29 | disposition home or self-care (01) ==
LOC: ED 07:32
DX: F39 Unspecified mood [affective] disorder (principal); Z72.9 Problem related to lifestyle, unspecified; Z59.0 Homelessness; R94.31 Abnormal electrocardiogram [ECG] [EKG]
CPT/HCPCS: 36415; 71045; 80053; 85025; 93005; 99285

== ENCOUNTER 2020-08-10 15:42 | Emergency (ER) | payer MEDICARE, MEDICAID ==
[~2020-08-10] VITALS: Ht 177.8 cm; Wt 66.5 kg
[2020-08-10 16:08] VITALS: BP 155/90
== END 2020-08-10 17:49 | disposition home or self-care (01) ==
LOC: ED 17:35
DX: U07.1 COVID-19 (principal); M54.9 Dorsalgia, unspecified; I10 Essential (primary) hypertension; J44.9 Chronic obstructive pulmonary disease, unspecified; I25.2 Old myocardial infarction; I45.9 Conduction disorder, unspecified; F17.200 Nicotine dependence, unspecified, uncomplicated
CPT/HCPCS: 93005; 99283

== ENCOUNTER 2020-08-12 21:05 | Emergency (ER) | payer MEDICARE, MEDICAID ==
[~2020-08-12] VITALS: Ht 177.8 cm; Wt 70.0 kg
--- NOTE | 2020-08-12 21:25 | NUR ---
PT BIB [facility] FOR ABD PAIN WITH NAUSEA, BACK PAIN X MULTIPLE DAYS AND MULTIPLE OTHER COMPLAINTS. PT MEDICATED WITH 4 MG ODT ZOFRAN. VSS. MTZ AT BEDSIDE
--- NOTE | 2020-08-12 22:28 | NUR ---
PT GIVEN DISCHARGE INSTRUCTIONS AND CAB VOUCHER. VSS. PT GETTING DRESSED.
[2020-08-12 22:29] VITALS: BP 132/81
--- NOTE | 2020-08-12 22:39 | NUR ---
PT AMBULATED TO DISCHARGE DESK WITH WALKER
== END 2020-08-12 22:48 | disposition home or self-care (01) ==
LOC: ED 21:22
DX: R10.9 Unspecified abdominal pain (principal); F17.210 Nicotine dependence, cigarettes, uncomplicated; Z72.9 Problem related to lifestyle, unspecified
CPT/HCPCS: 90471; 99283; 99406